=== PATIENT | female | born 1970 | race Caucasian/White ===

== ENCOUNTER 2023-09-18 08:57 | Emergency (ER) | payer MEDICARE ==
--- NOTE | 2023-09-18 09:25 | ERPHSYRPT ---
- History of Present Illness Time Seen by Provider: 09/18/23 09:18 Historian: patient, family Exam Limitations: no limitations Physician History: Pt has abd pain past day or so and pain down in stomach after swallowing but no pain at throat with swallowing and can swallow liquids OK No shortness of breath or CP. But pain is epigastric no hc CAD reported. Abd tender RUQ. some N and V and D also. nHx GERD and GB removed. Discussed risks/benefits of testing/Tx with pt and family including CBC, CT abd, CMP,lipase , HCG, UA, ZOfran, pepcid, protonix, IVF, Morphine, benedryl, Lactate, trops, EKG, and they wish to proceed - so these are ordered. Results discussed with family and pt. Family present in ER as independent Hx source. Timing/Duration: yesterday Activities at Onset: none Quality: cramping, pressure, sharpness Abdominal Pain Onset Location: RUQ, epigastric Pain Radiation: epigastric Severity of Pain-Max: moderate Modifying Factors: Improves With: nothing Associated Symptoms: diarrhea, loss of appetite, nausea, vomiting Previous symptoms: no prior history Allergies/Adverse Reactions: Penicillins Allergy (Verified 09/18/23 09:09) Home Medications: ALPRAZolam 1 MG [Xanax 1 mg] 1 mg PO BID 09/18/23 [History] Diazepam 5 mg [Valium 5 MG] 5 mg PO CLARIFY PRN 09/18/23 [History] - Review of Systems Constitutional: No Fever, No Chills Eyes: No Symptoms Ears, Nose, & Throat: No Symptoms Respiratory: No Cough, No Dyspnea Cardiac: No Chest Pain, No Edema, No Syncope Abdominal/Gastrointestinal: Abdominal Pain, Nausea, Vomiting, Diarrhea Genitourinary Symptoms: No Dysuria Musculoskeletal: No Back Pain, No Neck Pain Skin: No Rash Neurological: No Dizziness, No Focal Weakness, No Sensory Changes Psychological: No Symptoms Endocrine: No Symptoms Hematologic/Lymphatic: No Symptoms Immunological/Allergic: No Symptoms All Other Systems: Reviewed and Negative - Past Medical History Pertinent Past Medical History: Yes Neurological History: No Pertinent History ENT History: No Pertinent History Cardiac History: No Pertinent History Respiratory History: No Pertinent History Endocrine Medical History: No Pertinent History Musculoskeletal History: Other (fibromyalgia and ED HMS ) GI Medical History: GERD, Gallbladder Disease, Other History: No Pertinent History Female Reproductive Disorders: Other (hysterectomy) - Past Surgical History Past Surgical History: Yes Gastrointestinal: Cholecystectomy - Nursing Vital Signs Nursing Vital Signs: Initial Vital Signs Temperature 98.7 F 09/18/23 09:05 Pulse Rate 110 H 09/18/23 09:05 Respiratory Rate 19 09/18/23 09:05 Blood Pressure 123/98 09/18/23 09:05 O2 Sat by Pulse Oximetry 99 09/18/23 09:05 Pain Scale Pain Intensity 0 - Physical Exam General Appearance: no apparent distress, alert Eye Exam: PERRL/EOMI, eyes nml inspection Ears, Nose, Throat Exam: normal ENT inspection, pharynx normal, moist mucous membranes Neck Exam: normal inspection, non-tender, supple, full range of motion Respiratory Exam: normal breath sounds, lungs clear, No respiratory distress Cardiovascular Exam: regular rate/rhythm, normal heart sounds Gastrointestinal/Abdomen Exam: soft, tenderness, guarding, No mass Pelvic Exam: deferred Rectal Exam: deferred Back Exam: normal inspection, normal range of motion, No CVA tenderness, No vertebral tenderness Extremity Exam: normal inspection, normal range of motion, pelvis stable Neurologic Exam: alert, oriented x 3, cooperative, normal mood/affect, nml cerebellar function, sensation nml, No motor deficits Skin Exam: normal color, warm, dry - Course Nursing assessment & vital signs reviewed: Yes EKG Interpreted by Me: Sinus Rhythm, NORMAL AXIS, NORMAL INTERVALS, NORMAL QRS, Non-specific ST Changes - CT Exams Abdomen/Pelvis CT Interpretation: Tele-radiologist Report, Normal Appendix, No appendicitis Soft Tissue Neck CT Interpretation: Tele-radiologist Report, Other (dilated prox esophagus) Ordered Tests: Active Orders 24 hr Category Date Time Status EKG-ER Only STAT Care 09/18/23 09:30 Active IV Insertion STAT Care 09/18/23 09:30 Active ABDOMEN AND PELVIS W/0 CONTRAS [CT] Stat Exams 09/18/23 09:31 Completed NECK WO CONTRAST [CT] Stat Exams 09/18/23 11:36 Completed CBC W DIFF Stat Lab 09/18/23 09:46 Completed CMP Stat Lab 09/18/23 09:46 Completed HCG QUALITATIVE, SERUM Stat Lab 09/18/23 09:46 Completed LIPASE Stat Lab 09/18/23 09:46 Completed Lactic Acid Stat Lab 09/18/23 11:07 Completed Lactic Acid Stat Lab 09/18/23 13:10 Received TROPONIN Q4H Lab 09/18/23 09:46 Completed TROPONIN Q4H Lab 09/18/23 12:58 Completed TROPONIN Q4H Lab 09/18/23 17:30 Ordered UA W/RFX UR CULTURE Stat Lab 09/18/23 09:42 Completed Medication Summary Discontinued Medications Generic Name Dose Route Start Last Admin Trade Name Suzie PRN Reason Stop Dose Admin Diphenhydramine HCl 25 mg 09/18/23 09:30 09/18/23 09:38 Diphenhydramine Hcl 50 Mg/Ml Vial IV 09/18/23 09:31 25 mg STAT ONE Administration Diphenhydramine HCl Confirm 09/18/23 09:36 Diphenhydramine Hcl 50 Mg/Ml Vial Administered 09/18/23 09:37 Dose 50 mg .ROUTE .STK-MED ONE Famotidine 20 mg 09/18/23 09:30 09/18/23 09:38 Famotidine 20 Mg/1 Vial IV 09/18/23 09:31 20 mg STAT ONE Administration Famotidine Confirm 09/18/23 09:36 Famotidine 20 Mg/1 Vial Administered 09/18/23 09:37 Dose 20 mg IV .STK-MED ONE Hydromorphone HCl 1 mg 09/18/23 10:33 09/18/23 10:38 Hydromorphone 1 Mg/1ml Inj IV 09/18/23 10:34 1 mg STAT ONE Administration Hydromorphone HCl Confirm 09/18/23 10:37 Hydromorphone 1 Mg/1ml Inj Administered 09/18/23 10:38 Dose 1 mg .ROUTE .STK-MED ONE Sodium Chloride 1,000 mls @ 999 mls/hr 09/18/23 09:30 09/18/23 10:38 Sodium Chloride 0.9% 1000 Ml IV 09/18/23 10:30 Infused .Q1H1M STA Infusion Sodium Chloride Confirm 09/18/23 09:36 Sodium Chloride 0.9% 1000 Ml Administered 09/18/23 09:37 Dose 1,000 mls @ ud .ROUTE .STK-MED ONE Sodium Chloride 1,000 mls @ 999 mls/hr 09/18/23 11:22 09/18/23 12:36 Sodium Chloride 0.9% 1000 Ml IV 09/18/23 12:22 Infused .Q1H1M STA Infusion Sodium Chloride Confirm 09/18/23 11:30 Sodium Chloride 0.9% 1000 Ml Administered 09/18/23 11:31 Dose 1,000 mls @ ud .ROUTE .STK-MED ONE Lorazepam 1 mg 09/18/23 13:18 09/18/23 13:28 Lorazepam 1 Mg Tablet PO 09/18/23 13:19 1 mg STAT ONE Administration Lorazepam Confirm 09/18/23 13:28 Lorazepam 1 Mg Tablet Administered 09/18/23 13:29 Dose 1 mg .ROUTE .STK-MED ONE Morphine Sulfate 4 mg 09/18/23 09:30 09/18/23 09:37 Morphine Sulfate 4 Mg/Ml Injection IV 09/18/23 09:31 4 mg STAT ONE Administration Morphine Sulfate Confirm 09/18/23 09:36 Morphine Sulfate 4 Mg/Ml Injection Administered 09/18/23 09:37 Dose 4 mg .ROUTE .STK-MED ONE Ondansetron HCl 4 mg 09/18/23 09:30 09/18/23 09:38 Ondansetron Hcl 4 Mg/2 Ml Vial IV 09/18/23 09:31 4 mg STAT ONE Administration Ondansetron HCl Confirm 09/18/23 09:35 Ondansetron Hcl 4 Mg/2 Ml Vial Administered 09/18/23 09:36 Dose 4 mg .ROUTE .STK-MED ONE Pantoprazole Sodium 40 mg 09/18/23 09:30 09/18/23 09:37 Pantoprazole 40 Mg Vial IV 09/18/23 09:31 40 mg STAT ONE Administration Pantoprazole Sodium Confirm 09/18/23 09:36 Pantoprazole 40 Mg Vial Administered 09/18/23 09:37 Dose 40 mg IV .STK-MED ONE Lab/Rad Data: Laboratory Result Diagrams 09/18/23 09:46 09/18/23 09:46 Laboratory Results 09/18/23 09/18/23 09/18/23 Range/Units 12:58 11:07 09:46 WBC (3.98-10.04) x10^3/uL RBC (3.93-5.22) x10^6/uL Hgb (11.2-15.7) g/dL Hct (34.1-44.9) % MCV (79.4-94.8) fL MCH (25.6-32.2) pg MCHC (32.2-35.5) g/dL RDW (11.7-14.4) % Plt Count (182-369) x10^3/uL MPV (9.4-12.3) fL Gran % (34.0-71.1) % Immature Gran % (Auto) (0.001-0.429) % Nucleat RBC Rel Count (0.00-0.2) % Eos # (Auto) (0.04-0.36) x10^3/uL Immature Gran # (Auto) (0.001-0.031) x10^3u/L Absolute Lymphs (auto) (1.18-3.74) x10^3/uL Absolute Monos (auto) (0.24-0.86) x10^3/uL Absolute Nucleated RBC (0.00-0.012) x10^3u/L Lymphocytes % (19.3-51.7) % Monocytes % (4.7-12.5) % Eosinophils % (0.7-5.8) % Basophils % (0.1-1.2) % Absolute Granulocytes (1.56-6.13) x10^3/uL Basophils # (0.01-0.08) x10^3/uL Sodium (135-145) mmol/L Potassium (3.5-5.1) mmol/L Chloride (98-107) mmol/L Carbon Dioxide (22-30) mmol/L Anion Gap (5-15) MEQ/L BUN (7-17) mg/dL Creatinine (0.52-1.04) mg/dL Estimated GFR ML/MIN Glucose (74-106) mg/dL Lactic Acid 2.4 H (0.4-2.0) Calcium (8.4-10.2) mg/dL Total Bilirubin (0.2-1.3) mg/dL AST (14-36) U/L ALT (0-35) U/L Alkaline Phosphatase (38-126) U/L Troponin I < 0.012 (0.000-0.033) ng/mL Serum Total Protein (6.3-8.2) g/dL Albumin (3.5-5.0) g/dL Lipase (23-300) U/L Serum HCG, Qual NEGATIVE (NEGATIVE) Urine Color (Yellow) Urine Appearance (Clear) Urine pH (4.6-8.0) Ur Specific [place] (1.005-1.030) Urine Protein (Negative) Urine Glucose (UA) (Negative) mg/dL Urine Ketones (Negative) Urine Blood (Negative) Urine Nitrite (Negative) Urine Bilirubin (Negative) Urine Urobilinogen (0.2) mg/dL Ur Leukocyte Esterase (Negative) U Hyaline Cast (Auto) (0-2) /LPF Urine Microscopic RBC (0-5) /HPF Urine Microscopic WBC (0-5) /HPF Ur Epithelial Cells (None Seen) /HPF Urine Bacteria (None Seen) /HPF Urine Culture Reflexed (NO) 09/18/23 09/18/23 09/18/23 Range/Units 09:46 09:46 09:42 WBC 4.6 (3.98-10.04) x10^3/uL RBC 4.13 (3.93-5.22) x10^6/uL Hgb 12.8 (11.2-15.7) g/dL Hct 37.7 (34.1-44.9) % MCV 91.3 (79.4-94.8) fL MCH 31.0 (25.6-32.2) pg MCHC 34.0 (32.2-35.5) g/dL RDW 12.1 (11.7-14.4) % Plt Count 308 (182-369) x10^3/uL MPV 9.3 L (9.4-12.3) fL Gran % 54.5 (34.0-71.1) % Immature Gran % (Auto) 0.2 (0.001-0.429) % Nucleat RBC Rel Count 0.0 (0.00-0.2) % Eos # (Auto) 0.09 (0.04-0.36) x10^3/uL Immature Gran # (Auto) 0.01 (0.001-0.031) x10^3u/L Absolute Lymphs (auto) 1.64 (1.18-3.74) x10^3/uL Absolute Monos (auto) 0.30 (0.24-0.86) x10^3/uL Absolute Nucleated RBC 0.00 (0.00-0.012) x10^3u/L Lymphocytes % 36.0 (19.3-51.7) % Monocytes % 6.6 (4.7-12.5) % Eosinophils % 2.0 (0.7-5.8) % Basophils % 0.7 (0.1-1.2) % Absolute Granulocytes 2.49 (1.56-6.13) x10^3/uL Basophils # 0.03 (0.01-0.08) x10^3/uL Sodium 140 (135-145) mmol/L Potassium 4.2 (3.5-5.1) mmol/L Chloride 106 (98-107) mmol/L Carbon Dioxide 25 (22-30) mmol/L Anion Gap 12.7 (5-15) MEQ/L BUN 8 (7-17) mg/dL Creatinine 0.62 (0.52-1.04) mg/dL Estimated GFR 105.8 ML/MIN Glucose 96 (74-106) mg/dL Lactic Acid (0.4-2.0) Calcium 9.8 (8.4-10.2) mg/dL Total Bilirubin 0.30 (0.2-1.3) mg/dL AST 21 (14-36) U/L ALT 20 (0-35) U/L Alkaline Phosphatase 51 (38-126) U/L Troponin I < 0.012 (0.000-0.033) ng/mL Serum Total Protein 7.6 (6.3-8.2) g/dL Albumin 4.6 (3.5-5.0) g/dL Lipase 43 (23-300) U/L Serum HCG, Qual (NEGATIVE) Urine Color Yellow (Yellow) Urine Appearance Sl Cloudy* A (Clear) Urine pH 6.5 (4.6-8.0) Ur Specific [place] <=1.005 (1.005-1.030) Urine Protein Negative (Negative) Urine Glucose (UA) Negative (Negative) mg/dL Urine Ketones Negative (Negative) Urine Blood Negative (Negative) Urine Nitrite Negative (Negative) Urine Bilirubin Negative (Negative) Urine Urobilinogen 0.2 (0.2) mg/dL Ur Leukocyte Esterase Negative (Negative) U Hyaline Cast (Auto) NONE SEEN (0-2) /LPF Urine Microscopic RBC 0-2 (0-5) /HPF Urine Microscopic WBC 0-2 (0-5) /HPF Ur Epithelial Cells Rare (None Seen) /HPF Urine Bacteria None Seen (None Seen) /HPF Urine Culture Reflexed NO (NO) - Progress Progress: improved, re-examined Progress Note: 09/18/23 10:34 morphine was not adequate so going to dilaudid for pain - discussed with pt and she wishes to proceed. 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 This is ordered. Results discussed with pt and family. 09/18/23 13:42 Pt is feeling much better now and geoff liquids in ER OK . I have advised pt and family of dilation of esophagus and this will need to be scoped and they wish to do this as outpt with PMDs also I advised that undetected pathology could be evolving including C-V or Abd other and again they are most comfortable with DC and outpt f/u rather than inpt/ further ER and have the capacity to make this choice. Counseled pt/family regarding: lab results, diagnosis, need for follow-up, rad results Medical Desision Making - Discussion of managment Reviewed:: Test results, Need for additional workup Agreed on:: Treatment plan, need for follow-up - Diagnostic Testing Diagnostic test were ordered, analyzed, and reviewed by me: Yes Radiological Interpretation: Teleradiologist Report - Risk of complications The pt has a mod risk of morbidity or mortality based on: Need for prescription drug management The pt has a high risk of morbidity or mortality based on: Decision regarding hospitilization or escalation of hosp level of care - Departure Departure Disposition: Home Clinical Impression: Abd pain unknown cause with vomiting, dilated esophagus, GERD with stricture Dx Condition: Good Critical Care Time: No Referrals: CAROLINE CASTAÑEDA MATERIAL CONTROL CLERK [Primary Care Provider] - Follow up/PCP as directed Instructions: Abdominal pain, Severe Abdominal Pain, Adult (DC), Dyspepsia (DC), Monroe's esophagus, Esophageal Stricture (DC) Additional Instructions: Followup with your DrBryon Wednesday to arrange further evaluation with scoping for your esophagus. continue on liquids and resume ulcer meds such as pepcid meantime. We have not determined a precise cause for your symptoms and although a flare of the esophagus condition seems to fit there still could be other things including cardiac or other conditions that could also be developing so follow-up with your Dr is important and return meantime if any concerns or further symptoms of concern.
[2023-09-18 09:35] VITALS: TEMP 98.7
[2023-09-18] MEDS ORDERED: Zofran 4 MG/2 ML VIAL ONE (09:35)
[2023-09-18] MEDS ORDERED: PROTONIX 40 MG IV IV ONE (09:36)
[2023-09-18] MEDS ORDERED: Sodium Chloride 0.9% 1000 ML 1,000 ML ONE ×2 (09:36→11:30)
[2023-09-18] MEDS ORDERED: BENADRYL 50 MG/ML ONE (09:36)
[2023-09-18] MEDS ORDERED: MORPHINE SULFATE 4 MG INJ ONE (09:36)
[2023-09-18] MEDS ORDERED: Pepcid 20 MG VIAL IV ONE (09:36)
[2023-09-18] MEDS: MORPHINE SULFATE 4 MG INJ IV ONE (09:37)
[2023-09-18] MEDS: Sodium Chloride 0.9% 1000 ML 1,000 ML IV STA ×2 (09:37→11:30)
[2023-09-18] MEDS: PROTONIX 40 MG IV IV ONE (09:37)
[2023-09-18] MEDS: Zofran 4 MG/2 ML VIAL IV ONE (09:38)
[2023-09-18] MEDS: Pepcid 20 MG VIAL IV ONE (09:38)
[2023-09-18] MEDS: BENADRYL 50 MG/ML IV ONE (09:38)
[2023-09-18 09:50] LABS: Absolute Neutrophil Ct (ANC) 2.49 x10^3/uL (1.56-6.13); BASOPHIL % 0.7 % (0.1-1.2); Basophil (Absolute #) 0.03 x10^3/uL (0.01-0.08); Eosinophil (Absolute #) 0.09 x10^3/uL (0.04-0.36); Hematocrit 37.7 % (34.1-44.9); Hemoglobin 12.8 g/dL (11.2-15.7); IMMATURE GRAN # 0.01 x10^3u/L (0.001-0.031); IMMATURE GRAN % 0.2 % (0.001-0.429); Lymphocyte (Absolute #) 1.64 x10^3/uL (1.18-3.74); Mean Cell Volume 91.3 fL (79.4-94.8); Mean Platelet Volume 9.3 fL (9.4-12.3); Monocytes % 6.6 % (4.7-12.5); Neutrophil % 54.5 % (34.0-71.1); Platelet Count 308 x10^3/uL (182-369); Red Blood Count 4.13 x10^6/uL (3.93-5.22); Red Cell Distribution Width 12.1 % (11.7-14.4); White Blood Count 4.6 x10^3/uL (3.98-10.04)
[2023-09-18 10:16] LABS: ALBUMIN 4.6 g/dL (3.5-5.0); ALKALINE PHOSPHATASE 51 U/L (38-126); ANION GAP 12.7 MEQ/L (5-15); BLOOD UREA NITROGEN 8 mg/dL (7-17); CHLORIDE 106 mmol/L (98-107); Calcium 9.8 mg/dL (8.4-10.2); Carbon Dioxide 25 mmol/L (22-30); Creatinine 1 0.62 mg/dL (0.52-1.04); EST GLOMERULAR FILTRATION RATE 105.8 ML/MIN; Glucose 96 mg/dL (74-106); LIPASE 43 U/L (23-300); Potassium 4.2 mmol/L (3.5-5.1); SGOT/AST 21 U/L (14-36); SGPT/ALT 20 U/L (0-35); SODIUM 140 mmol/L (135-145); TROPONIN < 0.012 ng/mL (0.000-0.033); Total Protein 7.6 g/dL (6.3-8.2)
[2023-09-18 10:17] LABS: HCG SERUM TEST NEGATIVE (NEGATIVE)
[2023-09-18] MEDS ORDERED: Hydromorphone 1 mg/ml Injection ONE (10:37)
[2023-09-18] MEDS: Hydromorphone 1 mg/ml Injection IV ONE (10:38)
--- NOTE | 2023-09-18 10:46 | XRAY ---
CLINICAL HISTORY: abd pain COMPARISON: None. TECHNIQUE: Non-contrast CT of the abdomen and pelvis was performed, with the following protocol: axial images and reconstructed coronal and sagittal images. No intravenous contrast was administered. One of the following dose reduction techniques was utilized for this exam: Automated exposure control, adjustment of the mA and/or kV according to patient size, and use of iterative reconstruction. FINDINGS: Abdomen: Liver: Normal in size, shape, and density. No focal lesions, cysts, or masses were identified. Gallbladder and Biliary System: Cholecystectomy. No biliary duct dilatation. Pancreas: Pancreatic head, body, and tail are visualized and appear normal in size and density. No pancreatic masses or calcifications were noted. Spleen: Normal in size, shape, and density. No splenic lesions or masses were identified. Tiny accessory spleens, one of them localized at the javan (9 mm) and the other one at the upper pole (10 mm). Kidneys and Adrenal Glands: Both kidneys are normal in size, shape, and position. Cortical thickness is within normal limits. No renal calculi or hydronephrosis. Adrenal glands are unremarkable. Appendix: The appendix is normal in size without oleksandr appendiceal fat stranding, and without an appendicolith. No evidence of appendiceal abscess or perforation. Pelvis: Urinary Bladder: Partially distended, with no calcic stones. Peritoneal and Retroperitoneal Structures: No free fluid or abnormal fluid collections were identified within the abdomen or pelvis. No lymphadenopathy was noted. Presence of some phlebolites. Bowel: The visualized bowel loops are normal in caliber and appearance. No evidence of bowel obstruction or wall thickening. Bones and Soft Tissues: Pelvic bones and soft tissues are unremarkable. No fractures or abnormal masses were identified. IMPRESSION: Non-contrast CT abdomen and pelvis demonstrate normal findings without evidence of acute intra-abdominal pathology. Electronically Signed by: Geraldine Ayoub MD. (09/18/2023 10:41:55 EDT)
[2023-09-18 11:18] LABS: Bacteria None Seen /HPF (None Seen); Bilirubin Negative (Negative); Blood Negative (Negative); Epithelial Cells Rare /HPF (None Seen); Glucose, Urine Negative (Negative); Hyaline Casts NONE SEEN /LPF (0-2); Ketones Negative (Negative); Leukocyte Esterase Negative (Negative); Nitrite Negative (Negative); Ph 6.5 (4.6-8.0); Protein,Urine Dip Negative (Negative); RBC 0-2 /HPF (0-5); Specific Gravity <=1.005 (1.005-1.030); Urobilinogen 0.2 mg/dL (0.2); WBC 0-2 /HPF (0-5)
[2023-09-18 11:22] LABS: ADD URINE CULTURE? NO (NO); Appearance Sl Cloudy* (Clear)
--- NOTE | 2023-09-18 13:04 | XRAY ---
CLINICAL HISTORY: swallowing symptoms COMPARISON: None. TECHNIQUE: Axial CT scan of the neck was performed without the administration of intravenous contrast. Coronal reconstructions were obtained. One of the following dose reduction techniques were utilized for this exam: Automated exposure control, adjustment of the mA and/or kV according to patient size, use of iterative reconstruction. FINDINGS: There is dilatation of the visualized esophagus , diameter approximately measuring 2.0 x 1.5cm. Apparent mild thickening of the tonsils seen bilaterally. Right-sided tosilolith seen measuring approximately 0.3cm. No enlarged cervical lymph nodes at any of noted lymph node stations. Normal CT appearance of the supra-and infra hyoid deep neck spaces. Normal CT appearance of the larynx, namely the supraglottic, glottic and infra, glottic spaces. Unremarkable. Nasal and Starla pharyngeal mucosal spaces. Normal CT appearance of the sublingual, submandibular and parotid salivary glands. The base of the tongue, the uvula, the epiglottis, the vocal cords, the upper trachea are unremarkable. The thyroid gland shows no definite abnormality. The visualized structures of the posterior fossa show no definite abnormality. Intervention seen in the lower cervical vertebrae without loosening or break. IMPRESSION: 1. Dilatation of the visualized esophagus seen, needs further evaluation. 2. Apparent mild thickening of the tonsils bilaterally, would recommend clinical correlation to rule out inflammatory process. Electronically Signed by: Geraldine Ayoub MD. (09/18/2023 12:59:32 EDT)
[2023-09-18] MEDS: Ativan 1 MG PO ONE (13:28)
[2023-09-18] MEDS ORDERED: Ativan 1 MG ONE (13:28)
[2023-09-18 13:31] VITALS: O2SAT 97
[2023-09-18 14:26] VITALS: BP 109/72; PULSE 94; RESP 18
== END 2023-09-18 14:15 | disposition home or self-care (01) ==
LOC: ED 08:57
DX: R10.13 Epigastric pain (principal); R10.11 Right upper quadrant pain; R11.2 Nausea with vomiting, unspecified; K22.89 Other specified disease of esophagus; K21.9 Gastro-esophageal reflux disease without esophagitis; R19.7 Diarrhea, unspecified; Z79.899 Other long term (current) drug therapy
CPT/HCPCS: 36000; 36415; 70490; 74176; 80053; 81001; 83605; 83690; 84484; 84703; 85025; 93005; 96374; 96375; 99284; J1170; J1200; J2270; J2405; A9270-GY

== ENCOUNTER 2023-10-14 13:47 | Emergency (ER) | payer MEDICARE ==
--- NOTE | 2023-10-14 13:55 | ERPHSYRPT ---
- History of Present Illness Time Seen by Provider: 10/14/23 13:55 Source: patient Exam Limitations: no limitations Physician History: This is a 53-year-old white female patient who was brought to the emergency room by family/friend by private vehicle. Patient has a pain specialist, Dr. Lara for her chronic pain issues including mastoiditis, cervical spine pain and TMJ. She has been off of any treatment for these painful sites secondary to being treated for a dilated esophagus. On 09/18/2023, patient was seen in our emergency department and had a full workup. I reviewed the workup, the results of the CT scan of the abdomen pelvis as well as the CT scan of the soft tissue of the neck on the same date. CT scan of the abdomen pelvis did not show any acute or emergent intra-abdominal or intrapelvic process. There was a normal appendix. CT scan of soft tissue of the neck showed dilated proximal esophagus. On 09/29/2023 patient underwent an upper endoscopy by a laborer wrecking and salvaging. She states there is a follow-up appointment on 10/21/2023. Patient's most recent pain specialty appointment was pushed out into October 2023. Patient has been using THC to help control her pain issues. However, her GI specialist told her not to use THC as it is aggravating her esophageal issue. Patient has a history of gastroesophageal reflux disease, TMJ, anxiety issues. Patient states that morphine does not work for her. Dilaudid works better for her. Patient has had a cholecystectomy in the past. Patient denies any trauma to her head neck shoulders or chest. She does complain of abdominal pain that is sharp and more significant than when she was here on 09/18/2023. She has had no vomiting or diarrhea symptoms. She denies chest pain. She denies shortness of breath. Timing/Duration: day(s) (2 to 3), worse Severity: moderate Associated Symptoms: abdominal pain, No nausea, No vomiting, No shortness of breath, No chest pain Allergies/Adverse Reactions: Penicillins Allergy (Verified 10/14/23 13:56) Home Medications: ALPRAZolam 1 MG [Xanax 1 mg] 1 mg PO BID 09/18/23 [History] Cyclobenzaprine HCl 10 mg [Cyclobenzaprine 10 MG] 10 mg PO DAILY 10/14/23 [History] Omeprazole 40 mg PO DAILY 10/14/23 [History] Hx Tetanus, Diphtheria Vaccination/Date Given: Yes Hx Influenza Vaccination/Date Given: No Travel Risk - International Travel Have you traveled outside of the country in past 3 weeks: No - Emerging Infectious Disease Are you exhibiting symptoms associated with any current EIDs: Yes Symptoms: Abdominal Pain - Review of Systems Constitutional: No Symptoms Eyes: No Symptoms Ears, Nose, & Throat: No Symptoms Respiratory: No Symptoms Cardiac: No Symptoms Abdominal/Gastrointestinal: No Symptoms Genitourinary Symptoms: No Symptoms Musculoskeletal: Neck Pain, Other (Right jaw/TMJ pain) Skin: No Symptoms Neurological: Headache, Other (Pain right mastoid) Psychological: Anxiety Endocrine: No Symptoms Hematologic/Lymphatic: No Symptoms Immunological/Allergic: No Symptoms All Other Systems: Reviewed and Negative - Past Medical History Pertinent Past Medical History: Yes Neurological History: No Pertinent History ENT History: No Pertinent History Cardiac History: No Pertinent History Respiratory History: No Pertinent History Endocrine Medical History: No Pertinent History Musculoskeletal History: Other (fibromyalgia and ED HMS ) GI Medical History: GERD, Gallbladder Disease, Other History: No Pertinent History Psycho-Social History: Anxiety, Other Female Reproductive Disorders: Other (hysterectomy) Other Medical History: allergies, TMJ, H-pylori, EDS/ HMS hypermobility, occipital neurolagia, Graves Disease, PTSD, - Past Surgical History Past Surgical History: Yes Gastrointestinal: Cholecystectomy Female Surgical History: Hysterectomy Other Surgical History: sinus surgery, anchored WINTER behind left ear, neck, bleeding ulcer repair - Social History Smoking Status: Former smoker Exposure to second hand smoke: No Drug Use: marijuana - Social Determinants of Health Will the patient participate in the screening: Yes Do you worry about a steady place to live?: No In the past 12 months,have you had to go without utilities?: No Transportation Issues: No Has anyone in your support network made you feel unsafe?: No Have you or anyone in your house had to go without enough: No - Nursing Vital Signs Nursing Vital Signs: Initial Vital Signs Pulse Rate 103 H 10/14/23 14:00 Blood Pressure 145/106 10/14/23 14:00 O2 Sat by Pulse Oximetry 97 10/14/23 14:00 Pain Scale Pain Intensity [Generalized] 9 Pain Intensity 7 - Physical Exam General Appearance: no apparent distress, alert, anxiety Eye Exam: PERRL/EOMI, eyes nml inspection Ears, Nose, Throat Exam: normal ENT inspection, moist mucous membranes Neck Exam: normal inspection, non-tender, supple, full range of motion Respiratory Exam: normal breath sounds, lungs clear, airway intact, No chest tenderness, No respiratory distress Cardiovascular Exam: regular rate/rhythm, normal heart sounds, normal peripheral pulses Gastrointestinal/Abdomen Exam: soft, normal bowel sounds, No tenderness Pelvic Exam: not done Rectal Exam: not done Back Exam: normal inspection, normal range of motion, No CVA tenderness, No vertebral tenderness Extremity Exam: normal inspection, normal range of motion, pelvis stable Neurologic Exam: alert, oriented x 3, cooperative, 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 tested, nml cerebellar function, nml station & gait, sensation nml Skin Exam: normal color, warm Lymphatic Exam: No adenopathy SpO2 Interpretation: normal O2 Delivery: Room Air - Course Nursing assessment & vital signs reviewed: Yes Ordered Tests: Active Orders 24 hr Category Date Time Status Clean Catch Urine Specimen STAT Care 10/14/23 14:25 Active ABDOMEN AND PELVIS W/0 CONTRAS [CT] Stat Exams 10/14/23 14:24 Taken UA W/RFX UR CULTURE Stat Lab 10/14/23 14:29 Completed Urine Triage Profile Stat Lab 10/14/23 14:29 Completed Medication Summary Discontinued Medications Generic Name Dose Route Start Last Admin Trade Name Suzie PRN Reason Stop Dose Admin Hydromorphone HCl 1 mg 10/14/23 14:25 10/14/23 14:32 Hydromorphone 1 Mg/1ml Inj IM 10/14/23 14:26 1 mg STAT ONE Administration Hydromorphone HCl Confirm 10/14/23 14:30 Hydromorphone 1 Mg/1ml Inj Administered 10/14/23 14:31 Dose 1 mg .ROUTE .STK-MED ONE Ondansetron HCl 4 mg 10/14/23 14:26 10/14/23 14:32 Zofran 4 Mg/Udtablet Orally Disintegrating PO 10/14/23 14:27 4 mg STAT ONE Administration Ondansetron HCl Confirm 10/14/23 14:30 Zofran 4 Mg/Udtablet Orally Disintegrating Administered 10/14/23 14:31 Dose 4 mg .ROUTE .STK-MED ONE Orphenadrine Citrate 60 mg 10/14/23 14:26 10/14/23 14:32 Orphenadrine Citrate 60 Mg/2 Ml Vial IM 10/14/23 14:27 60 mg STAT ONE Administration Orphenadrine Citrate Confirm 10/14/23 14:30 Orphenadrine Citrate 60 Mg/2 Ml Vial Administered 10/14/23 14:31 Dose 60 mg .ROUTE .STK-MED ONE Oxycodone/Acetaminophen 1 tab 10/14/23 16:32 Oxycodone Hcl/Apap 5 Mg/325 Mg Tablet PO 10/14/23 16:33 STAT STA Lab/Rad Data: Laboratory Results 10/14/23 10/14/23 Range/Units 14:29 14:29 Urine Color Yellow (Yellow) Urine Appearance Clear (Clear) Urine pH 6.5 (4.6-8.0) Ur Specific [place] 1.015 (1.005-1.030) Urine Protein Negative (Negative) Urine Glucose (UA) Negative (Negative) mg/dL Urine Ketones Negative (Negative) Urine Blood Trace (Negative) Urine Nitrite Negative (Negative) Urine Bilirubin Negative (Negative) Urine Urobilinogen 0.2 (0.2) mg/dL Ur Leukocyte Esterase Negative (Negative) U Hyaline Cast (Auto) NONE SEEN (0-2) /LPF Urine Microscopic RBC 0-2 (0-5) /HPF Urine Microscopic WBC 0-2 (0-5) /HPF Ur Epithelial Cells Rare (None Seen) /HPF Urine Bacteria None Seen (None Seen) /HPF Urine Culture Reflexed NO (NO) Urine Opiates Level NEGATIVE (NEGATIVE) Ur Methadone NEGATIVE (NEGATIVE) Urine Barbiturates NEGATIVE (NEGATIVE) Ur Phencyclidine (PCP) NEGATIVE (NEGATIVE) Urine Amphetamine NEGATIVE (NEGATIVE) U Benzodiazepine Level POSITIVE A (NEGATIVE) Urine Cocaine NEGATIVE (NEGATIVE) Urine Marijuana (THC) POSITIVE A (NEGATIVE) - Progress Progress: improved, pain not gone completely Progress Note: 10/14/23 14:33 My medical decision making and the assignment of low to moderate complexity of this patient's medical issue today is based on review of the patient's past medical history, review of the patient's medication list, review the patient drug allergy list, history present illness and physical findings on examination. The patient states she is no longer taking any muscle relaxants and she states that this helps her control her pain. Workup in this patient includes urinalysis, urine triage, CT scan of the abdomen pelvis. Patient did not suffer any acute fall or trauma. I do not believe this patient has an emergent issue today. However, he does appear to be in pain and there is probably an acute exacerbation of chronic pain issues. She realizes, after our discussion, that she is in the emergency department and I am ruling in and ruling out emergency medical issues. We will order the CT scan of the abdomen pelvis and provide her with some pain relief here in the emergency department. However, she is aware will not be writing for any narcotic medicines for outpatient. 10/14/23 16:36 I interpreted the patient's laboratory data results. Based on the laboratory data results, patient has no acute or emergent findings. CT scan of the abdomen pelvis without contrast was interpreted by the radiologist and I reviewed the impression. There is no change from the CT scan of the abdomen pelvis that was performed on 09/18/2023. There are no acute or new findings. Counseled pt/family regarding: lab results, diagnosis, need for follow-up, rad results Medical Desision Making - Independent Historian Additional History obtained from: Family - Diagnostic Testing Diagnostic test were ordered, analyzed, and reviewed by me: Yes Radiological Interpretation: Reviewed by me, Teleradiologist Report - Risk of complications The pt has a mod risk of morbidity or mortality based on: Need for prescription drug management - Departure Departure Disposition: Home Clinical Impression: Acute neck pain, Abdominal pain Condition: Stable Critical Care Time: No Referrals: CAROLINE CASTAÑEDA PL[employer] [facility] [employer] FINISHER [Primary Care Provider] - Follow up/PCP as directed Additional Instructions: Take your steroids as prescribed. Do not take your antianxiety medicine within 3 hours of your new muscle relaxant prescription. If you are taking cyclobenzaprine (Flexeril), stop that medication. Call your primary care provider and your pain specialist tomorrow, 10/15/2023, to make arrangements for follow-up appointment for further evaluation and management including follow-up appointment to be seen in the next 2 to 3 days. Prescriptions: Prednisone 10 mg [Deltasone 10 mg] 10 mg PO TID #12 tablet Orphenadrine Citrate 100 mg [Norflex 100 MG Tablet] 100 mg PO BID #10 tab
[2023-10-14] MEDS ORDERED: Hydromorphone 1 mg/ml Injection ONE (14:30)
[2023-10-14] MEDS ORDERED: ZOFRAN ODT 4 MG ONE (14:30)
[2023-10-14] MEDS ORDERED: Norflex 60 MG/2 ML ONE (14:30)
[2023-10-14] MEDS: Norflex 60 MG/2 ML IM ONE (14:32)
[2023-10-14] MEDS: Hydromorphone 1 mg/ml Injection IM ONE (14:32)
[2023-10-14] MEDS: ZOFRAN ODT 4 MG PO ONE (14:32)
[2023-10-14 15:08] LABS: Appearance Clear (Clear); Bacteria None Seen /HPF (None Seen); Bilirubin Negative (Negative); Blood Trace (Negative); Epithelial Cells Rare /HPF (None Seen); Glucose, Urine Negative (Negative); Hyaline Casts NONE SEEN /LPF (0-2); Ketones Negative (Negative); Leukocyte Esterase Negative (Negative); Nitrite Negative (Negative); Ph 6.5 (4.6-8.0); Protein,Urine Dip Negative (Negative); RBC 0-2 /HPF (0-5); Specific Gravity 1.015 (1.005-1.030); Urobilinogen 0.2 mg/dL (0.2); WBC 0-2 /HPF (0-5)
[2023-10-14 15:09] LABS: ADD URINE CULTURE? NO (NO)
[2023-10-14 15:17] LABS: Amphetamine,Urine NEGATIVE (NEGATIVE); Barbiturate,Urine NEGATIVE (NEGATIVE); Benzodiazepine,Urine POSITIVE (NEGATIVE); Cocaine,Urine NEGATIVE (NEGATIVE); Methadone,Urine NEGATIVE (NEGATIVE); Opiate,Urine NEGATIVE (NEGATIVE); PCP,Urine NEGATIVE (NEGATIVE); THC,Urine POSITIVE (NEGATIVE)
[2023-10-14] MEDS: PERCOCET TABLET 5/325MG PO STA (16:39)
[2023-10-14] MEDS ORDERED: PERCOCET TABLET 5/325MG ONE (16:39)
--- NOTE | 2023-10-14 16:39 | XRAY ---
Indication: Abdominal pain. Multiple contiguous axial images obtained through the abdomen and pelvis without contrast. Comparison: September 18, 2023 Lung bases again clear of infiltrate or effusion. Heart not enlarged. Noncontrasted stomach and bowel loops appear nonobstructed. Appendix not visualized. Again minimal sigmoid diverticulosis, cholecystectomy, and hysterectomy. No free fluid/air. Remaining liver, pancreas, spleen, adrenal glands, kidneys, ureters, bladder, and aorta are unremarkable for noncontrast exam. Again very minimal aortoiliac calcifications without AAA. Osseous structures intact. Impression: No change compared to ER CT exam one month ago. Again chronic findings including very minimal arteriosclerotic disease and minimal sigmoid diverticulosis. No new/acute findings on this noncontrast exam
[2023-10-14 16:44] VITALS: BP 112/77; PULSE 87; O2SAT 99
== END 2023-10-14 16:46 | disposition home or self-care (01) ==
LOC: ED 13:47
DX: M54.2 Cervicalgia (principal); R10.9 Unspecified abdominal pain; Z79.52 Long term (current) use of systemic steroids; Z79.899 Other long term (current) drug therapy
CPT/HCPCS: 74176; 80307; 81001; 96372; 99284; J1170; J2360; Q0162; A9270-GY

== ENCOUNTER 2023-10-29 07:16 | Emergency (ER) | payer MEDICARE ==
[2023-10-29 07:34] VITALS: TEMP 98.4
--- NOTE | 2023-10-29 07:46 | ERPHSYRPT ---
- History of Present Illness Time Seen by Provider: 10/29/23 07:25 Source: patient, family Exam Limitations: clinical condition Patient Subjective Stated Complaint: C/O body pain that began last night. When asked to describe "body pain" patient states her head, neck, shoulders, back, buttocks, and legs hurt. Patient indicates "muscle spasms" and her "tendons feel like they are being pulled everywhere." Triage Nursing Assessment: Patient brought back to ER in a W/C. She is alert and oriented; anxious and tearful. Skin tone normal. WOOD WNL. No SOB. Physician History: This is a 53-year-old white female patient who was brought into the emergency department by her mother who provided additional, independent history because the patient was in a lot of pain. Patient returns to emergency department with same symptoms that she complained of on 10/14/2023 with the exception of no abdominal pain today, no chest pain today and no shortness of breath today. Patient states that last evening she began having significant headache pain as well as pain in all of her muscles and tendons. She did take Tylenol and her Ativan this morning. Patient states that her next injection/evaluation treatment with Dr. Lara, her pain specialist, is on 11/10/2023. Patient does take Ativan for panic attacks and severe anxiety. Patient has a history of gastroesophageal reflux disease, hypothyroidism and chronic, intermittent s ciatica. Timing/Duration: yesterday Severity: moderate Modifying Factors: Improves With: nothing Associated Symptoms: headaches, No abdominal pain, No shortness of breath, No chest pain Allergies/Adverse Reactions: Penicillins Allergy (Verified 10/29/23 07:22) Home Medications: ALPRAZolam 1 MG [Xanax 1 mg] 1 mg PO BID 09/18/23 [History] Fluticasone Propionate 1 spray INTRANASAL DAILY 10/29/23 [History] Levothyroxine Sodium 50 mcg PO DAILY 10/29/23 [History] Omeprazole 40 mg PO DAILY 10/29/23 [History] Hx Tetanus, Diphtheria Vaccination/Date Given: Yes Hx Influenza Vaccination/Date Given: No Hx Pneumococcal Vaccination/Date Given: No Immunizations Up to Date: Yes Travel Risk - International Travel Have you traveled outside of the country in past 3 weeks: No - Emerging Infectious Disease Are you exhibiting symptoms associated with any current EIDs: No Symptoms: Abdominal Pain - Review of Systems Constitutional: No Symptoms Eyes: No Symptoms Ears, Nose, & Throat: No Symptoms Respiratory: No Symptoms Cardiac: No Symptoms Abdominal/Gastrointestinal: No Symptoms Genitourinary Symptoms: No Symptoms Musculoskeletal: Arthralgias, Back Pain, Myalgias, No Fall, No Injury Skin: No Symptoms Neurological: Headache, No Dizziness, No Seizure, No Speech Changes, No Vertigo Psychological: No Symptoms Endocrine: No Symptoms Hematologic/Lymphatic: No Symptoms Immunological/Allergic: No Symptoms All Other Systems: Reviewed and Negative - Past Medical History Pertinent Past Medical History: Yes Neurological History: No Pertinent History ENT History: No Pertinent History Cardiac History: No Pertinent History Respiratory History: No Pertinent History Endocrine Medical History: No Pertinent History Musculoskeletal History: Other GI Medical History: GERD, Gallbladder Disease, Other History: No Pertinent History Psycho-Social History: Anxiety, Other Female Reproductive Disorders: Other Other Medical History: allergies, TMJ, H-pylori, EDS/ HMS hypermobility, occipital neurolagia, Graves Disease, PTSD, - Past Surgical History Past Surgical History: Yes Gastrointestinal: Cholecystectomy Female Surgical History: Hysterectomy Other Surgical History: sinus surgery, anchored WINTER behind left ear, neck, bleeding ulcer repair - Social History Smoking Status: Former smoker Exposure to second hand smoke: No Drug Use: none - Social Determinants of Health Will the patient participate in the screening: Declined to provide - Nursing Vital Signs Nursing Vital Signs: Initial Vital Signs Temperature 98.4 F 10/29/23 07:24 Pulse Rate 100 H 10/29/23 07:24 Respiratory Rate 20 10/29/23 07:24 Blood Pressure 128/89 10/29/23 07:24 O2 Sat by Pulse Oximetry 99 10/29/23 07:24 Pain Scale Pain Intensity 10 - Physical Exam General Appearance: mild distress, alert, anxiety Eye Exam: PERRL/EOMI, eyes nml inspection Ears, Nose, Throat Exam: normal ENT inspection, moist mucous membranes Neck Exam: normal inspection, non-tender, supple, full range of motion Respiratory Exam: normal breath sounds, lungs clear, airway intact, No chest tenderness, No respiratory distress Cardiovascular Exam: regular rate/rhythm, normal heart sounds, normal peripheral pulses Gastrointestinal/Abdomen Exam: soft, normal bowel sounds, No tenderness Pelvic Exam: deferred Rectal Exam: not done Back Exam: normal inspection, decreased range of motion, muscle spasm, No CVA tenderness, No vertebral tenderness Extremity Exam: normal inspection, normal range of motion, pelvis stable Neurologic Exam: alert, oriented x 3, 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, 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 tested, sensation nml Skin Exam: normal color, warm, dry Lymphatic Exam: No adenopathy SpO2 Interpretation: normal SpO2: 99 - Course Nursing assessment & vital signs reviewed: Yes Ordered Tests: Active Orders 24 hr Category Date Time Status IV Insertion STAT Care 10/29/23 07:44 Active Pulse Oximetry (ED) STAT Care 10/29/23 07:44 Active HEAD WITHOUT CONTRAST [CT] Stat Exams 10/29/23 07:44 Completed CBC W DIFF Stat Lab 10/29/23 07:55 Completed CMP Stat Lab 10/29/23 07:55 Completed MONO SCREEN Stat Lab 10/29/23 07:55 Completed Medication Summary Discontinued Medications Generic Name Dose Route Start Last Admin Trade Name Freq PRN Reason Stop Dose Admin Methylprednisolone Sodium 0 mg 10/29/23 07:44 10/29/23 08:14 Succinate 125 mg/ Sterile IV 10/29/23 07:45 125 mg Water 2 ml STAT ONE Administration Hydromorphone HCl 1 mg 10/29/23 07:44 10/29/23 08:17 Hydromorphone 1 Mg/1ml Inj IV 10/29/23 07:45 1 mg STAT ONE Administration Hydromorphone HCl Confirm 10/29/23 08:10 Hydromorphone 1 Mg/1ml Inj Administered 10/29/23 08:11 Dose 1 mg .ROUTE .STK-MED ONE Methylprednisolone Sodium Succinate Confirm 10/29/23 08:10 Methylprednis Sod Succ 125 Mg/2 Ml Vial Administered 10/29/23 08:11 Dose 125 mg .ROUTE .STK-MED ONE Prochlorperazine Edisylate 5 mg 10/29/23 07:44 10/29/23 08:12 Prochlorperazine Edisylate 10 Mg/2 Ml Vial IV 10/29/23 07:45 5 mg STAT ONE Administration Prochlorperazine Edisylate Confirm 10/29/23 08:10 Prochlorperazine Edisylate 10 Mg/2 Ml Vial Administered 10/29/23 08:11 Dose 10 mg .ROUTE .STK-MED ONE Sterile Water Confirm 10/29/23 08:10 Water For Injection,Sterile 10 Ml Vial Administered 10/29/23 08:11 Dose 10 ml IJ .STK-MED ONE Lab/Rad Data: Laboratory Result Diagrams 10/29/23 07:55 10/29/23 07:55 Laboratory Results 10/29/23 10/29/23 10/29/23 Range/Units 07:55 07:55 07:55 WBC 6.3 (3.98-10.04) x10^3/uL RBC 4.00 (3.93-5.22) x10^6/uL Hgb 12.5 (11.2-15.7) g/dL Hct 37.1 (34.1-44.9) % MCV 92.8 (79.4-94.8) fL MCH 31.3 (25.6-32.2) pg MCHC 33.7 (32.2-35.5) g/dL RDW 13.0 (11.7-14.4) % Plt Count 274 (182-369) x10^3/uL MPV 9.1 L (9.4-12.3) fL Gran % 55.0 (34.0-71.1) % Immature Gran % (Auto) 0.2 (0.001-0.429) % Nucleat RBC Rel Count 0.0 (0.00-0.2) % Eos # (Auto) 0.08 (0.04-0.36) x10^3/uL Immature Gran # (Auto) 0.01 (0.001-0.031) x10^3u/L Absolute Lymphs (auto) 2.29 (1.18-3.74) x10^3/uL Absolute Monos (auto) 0.40 (0.24-0.86) x10^3/uL Absolute Nucleated RBC 0.00 (0.00-0.012) x10^3u/L Lymphocytes % 36.5 (19.3-51.7) % Monocytes % 6.4 (4.7-12.5) % Eosinophils % 1.3 (0.7-5.8) % Basophils % 0.6 (0.1-1.2) % Absolute Granulocytes 3.46 (1.56-6.13) x10^3/uL Basophils # 0.04 (0.01-0.08) x10^3/uL Sodium 138 (135-145) mmol/L Potassium 4.1 (3.5-5.1) mmol/L Chloride 108 H (98-107) mmol/L Carbon Dioxide 23 (22-30) mmol/L Anion Gap 11.0 (5-15) MEQ/L BUN 13 (7-17) mg/dL Creatinine 0.62 (0.52-1.04) mg/dL Estimated GFR 105.1 ML/MIN Glucose 97 (74-106) mg/dL Calcium 9.9 (8.4-10.2) mg/dL Total Bilirubin 0.40 (0.2-1.3) mg/dL AST 19 (14-36) U/L ALT 17 (0-35) U/L Alkaline Phosphatase 51 (38-126) U/L Serum Total Protein 7.5 (6.3-8.2) g/dL Albumin 4.6 (3.5-5.0) g/dL Monoscreen NEGATIVE (NEGATIVE) - Progress Progress: improved, pain not gone completely, re-examined Progress Note: 10/29/23 07:55 Medical decision making and the assignment of moderate complexity to this patient's medical issue today is based on review of the patient's past medical history, review of the patient's medication list, reviewed patient drug allergy list, history present illness and physical findings on examination. The workup today includes placement of intravenous line, CT scan of the head without contrast, CBC, CMP, magnesium level, viral swabs and monotest. Differential diagnosis includes but is not limited to exacerbation of her fibromyalgia and chronic pain issues, viral illness, electrolyte abnormalities, anxiety/panic attack 10/29/23 08:56 I reviewed and interpreted the patient's laboratory data results. Based on the results, there are no acute, emergent medical issues. The scan of the head without contrast was interpreted by the radiologist and I reviewed the impression. The impression states partial opacification of bilateral mastoids and left middle ear. Presumed inflammatory. 10/29/23 09:[address] Lara's office. They state that this patient is no longer there patient. She does not have a pain management appointment. Counseled pt/family regarding: lab results, diagnosis, need for follow-up, rad results Medical Desision Making - Independent Historian Additional History obtained from: Mother - Diagnostic Testing Diagnostic test were ordered, analyzed, and reviewed by me: Yes Radiological Interpretation: Reviewed by me, Teleradiologist Report - Risk of complications The pt has a mod risk of morbidity or mortality based on: Need for prescription drug management - Departure Departure Disposition: Home Clinical Impression: Chronic pain, Mastoiditis, Infection of left inner ear Condition: Stable Critical Care Time: No Referrals: CAROLINE CASTAÑEDA NP [Primary Care Provider] - Follow up/PCP as directed Additional Instructions: Call your primary care provider and your pain management physician today for further instructions. Take your antibiotics and other medications as prescribed. Prescriptions: Cefdinir 300 mg PO BID #14 cap Clindamycin HCl 150 mg [Cleocin 150 mg Capsule] 2 cap PO QID #56 cap Prednisone 10 mg [Deltasone 10 mg] 10 mg PO TID #12 tablet
[2023-10-29 07:57] LABS: Absolute Neutrophil Ct (ANC) 3.46 x10^3/uL (1.56-6.13); BASOPHIL % 0.6 % (0.1-1.2); Basophil (Absolute #) 0.04 x10^3/uL (0.01-0.08); Eosinophil % 1.3 % (0.7-5.8); Eosinophil (Absolute #) 0.08 x10^3/uL (0.04-0.36); Hematocrit 37.1 % (34.1-44.9); Hemoglobin 12.5 g/dL (11.2-15.7); IMMATURE GRAN # 0.01 x10^3u/L (0.001-0.031); IMMATURE GRAN % 0.2 % (0.001-0.429); Lymphocyte (Absolute #) 2.29 x10^3/uL (1.18-3.74); Lymphocytes % 36.5 % (19.3-51.7); Mean Cell Volume 92.8 fL (79.4-94.8); Mean Corpuscular Hemoglobin 31.3 pg (25.6-32.2); Mean Corpuscular Hgb Concent. 33.7 g/dL (32.2-35.5); Mean Platelet Volume 9.1 fL (9.4-12.3); Monocytes % 6.4 % (4.7-12.5); Platelet Count 274 x10^3/uL (182-369); White Blood Count 6.3 x10^3/uL (3.98-10.04)
[2023-10-29 08:10] LABS: ALBUMIN 4.6 g/dL (3.5-5.0); BILIRUBIN,TOTAL 0.4 mg/dL (0.2-1.3); Calcium 9.9 mg/dL (8.4-10.2); Creatinine 1 0.62 mg/dL (0.52-1.04); EST GLOMERULAR FILTRATION RATE 105.1 ML/MIN; Potassium 4.1 mmol/L (3.5-5.1); Total Protein 7.5 g/dL (6.3-8.2)
[2023-10-29] MEDS ORDERED: Compazine 10 MG/2 ML ONE (08:10)
[2023-10-29] MEDS ORDERED: solu-MEDROL ONE (08:10)
[2023-10-29] MEDS ORDERED: Sterile H2O 10 ml IJ ONE (08:10)
[2023-10-29] MEDS ORDERED: Hydromorphone 1 mg/ml Injection ONE (08:10)
[2023-10-29] MEDS: Compazine 10 MG/2 ML IV ONE (08:12)
[2023-10-29] MEDS: solu-MEDROL 125 MG, Sterile H2O 10 ml 2 ML IV ONE (08:14)
[2023-10-29 08:15] VITALS: RESP 18
[2023-10-29] MEDS: Hydromorphone 1 mg/ml Injection IV ONE (08:17)
--- NOTE | 2023-10-29 08:33 | XRAY ---
Indication: Headache 2 days. Multiple contiguous axial images obtained through the head without contrast. Comparison: None Left posterior parietal scalp hearing aid produces beam artifact. Otherwise normal appearing brain parenchyma, ventricles, and bony calvarium. Partial opacification both mastoid and left middle ear presumed inflammatory. Impression: Partial opacification both mastoid and left middle ear presumed inflammatory. Remaining CT head without contrast exam is normal.
[2023-10-29 09:41] VITALS: BP 105/69; PULSE 84; O2SAT 96
== END 2023-10-29 09:50 | disposition home or self-care (01) ==
LOC: ED 07:16
DX: G89.29 Other chronic pain (principal); H83.02 Labyrinthitis, left ear; H70.93 Unspecified mastoiditis, bilateral; R51.9 Headache, unspecified; M79.18 Myalgia, other site; Z79.52 Long term (current) use of systemic steroids; Z79.899 Other long term (current) drug therapy
CPT/HCPCS: 36000; 36415; 70450; 80053; 85025; 86308; 94760; 96374; 96375; 99284; J1170; J2919

== ENCOUNTER 2023-12-08 09:59 | Emergency (ER) | payer MEDICARE ==
[2023-12-08 10:18] VITALS: TEMP 98.3
[2023-12-08] MEDS ORDERED: MORPHINE SULFATE 4 MG INJ ONE (11:02)
[2023-12-08] MEDS: MORPHINE SULFATE 4 MG INJ IM ONE (11:04)
[2023-12-08 11:34] VITALS: BP 116/84; PULSE 87; RESP 16; O2SAT 94
--- NOTE | 2023-12-08 11:54 | ERPHSYRPT ---
- History of Present Illness Time Seen by Provider: 12/08/23 10:55 Source: patient, family Exam Limitations: no limitations Patient Subjective Stated Complaint: C/O neck and bilateral shoulder pain. Described as "tension." States started yesterday with a "neck spasm." Triage Nursing Assessment: Patient ambulated back to ER without difficulties. She is alert and oriented. Anxious. No SOB. Skin tone normal. NO skin alterations noted to area of pain; denies falls, injury, trauma. Patient able to undress self and apply gown without difficulties; no ROM issues noted during clothing change. Physician History: 53-year-old female with history of TMJ issues with chronic pain, occipital neuralgia, chronic neck pain/spasms/degenerative disc disease, received epidural injections in the neck, trigger point injections in the shoulders, history of Ori-Danlos syndrome presented in the ER with spasm of the neck and jaw bilaterally more on the right side since yesterday. Patient reports usually gets better with Xanax and Zanaflex along with Tylenol but it was not improving. Patient reports having difficulty swallowing chronically because of TMJ issues and it felt as if there was a bulge on the right side of the neck yesterday which is improved now. She denies any chest pain palpitations or shortness of breath. Reports spasm in the shoulder muscles as well. Reports having similar symptoms in the past needing IM pain medicine shots. Allergies/Adverse Reactions: Penicillins Allergy (Verified 12/08/23 10:03) Home Medications: ALPRAZolam 1 MG [Xanax 1 mg] 1 mg PO BID 09/18/23 [History] Fluticasone Propionate 1 spray INTRANASAL DAILY PRN 10/29/23 [History] Levothyroxine Sodium 50 mcg PO DAILY 10/29/23 [History] Omeprazole 40 mg PO DAILY 10/29/23 [History] Tizanidine HCl 4 mg [Zanaflex 4 MG] 4 mg PO HS 12/08/23 [History] Hx Tetanus, Diphtheria Vaccination/Date Given: Yes Hx Influenza Vaccination/Date Given: No Hx Pneumococcal Vaccination/Date Given: No Immunizations Up to Date: Yes Travel Risk - International Travel Have you traveled outside of the country in past 3 weeks: No - Emerging Infectious Disease Are you exhibiting symptoms associated with any current EIDs: No Symptoms: Abdominal Pain - Review of Systems Constitutional: No Symptoms Eyes: No Symptoms Ears, Nose, & Throat: No Symptoms Respiratory: No Symptoms Cardiac: No Symptoms Abdominal/Gastrointestinal: No Symptoms Musculoskeletal: Neck Pain Skin: No Symptoms Neurological: Headache Psychological: No Symptoms Endocrine: No Symptoms Hematologic/Lymphatic: No Symptoms Immunological/Allergic: No Symptoms - Past Medical History Pertinent Past Medical History: Yes Neurological History: No Pertinent History ENT History: Other Cardiac History: No Pertinent History Respiratory History: No Pertinent History Endocrine Medical History: No Pertinent History Musculoskeletal History: Other GI Medical History: GERD, Gallbladder Disease, Other History: No Pertinent History Psycho-Social History: Anxiety, Other Female Reproductive Disorders: Other Other Medical History: allergies, TMJ, H-pylori, EDS/ HMS hypermobility, occipital neurolagia, Graves Disease, PTSD, mastoiditis, dilated esophagus - Past Surgical History Past Surgical History: Yes Gastrointestinal: Cholecystectomy Female Surgical History: Hysterectomy Other Surgical History: sinus surgery, anchored WINTER behind left ear, neck, bleeding ulcer repair - Social History Smoking Status: Former smoker Exposure to second hand smoke: No Drug Use: none - Social Determinants of Health Will the patient participate in the screening: Declined to provide - Nursing Vital Signs Nursing Vital Signs: Initial Vital Signs Temperature 98.3 F 12/08/23 10:06 Pulse Rate 96 H 12/08/23 10:06 Respiratory Rate 18 12/08/23 10:06 Blood Pressure 146/102 12/08/23 10:06 O2 Sat by Pulse Oximetry 100 12/08/23 10:06 Pain Scale Pain Intensity 9 - Physical Exam General Appearance: no apparent distress, alert Eye Exam: PERRL/EOMI Ears, Nose, Throat Exam: other (Bilateral TMJ/lower jaw tenderness.) Neck Exam: normal inspection, supple, full range of motion, other (Bilateral trapezius and sternomastoid mild tenderness.), No meningismus, No midline t enderness Respiratory Exam: normal breath sounds, lungs clear Cardiovascular Exam: regular rate/rhythm, normal heart sounds Gastrointestinal/Abdomen Exam: soft, normal bowel sounds Back Exam: normal inspection Extremity Exam: normal inspection, normal range of motion Neurologic Exam: alert, oriented x 3, cooperative Skin Exam: normal color SpO2 Interpretation: normal SpO2: 94 O2 Delivery: Room Air Ordered Tests: Medication Summary Discontinued Medications Generic Name Dose Route Start Last Admin Trade Name Freq PRN Reason Stop Dose Admin Morphine Sulfate 4 mg 12/08/23 10:55 12/08/23 11:04 Morphine Sulfate 4 Mg/Ml Injection IM 12/08/23 10:56 4 mg STAT ONE Administration Morphine Sulfate Confirm 12/08/23 11:02 Morphine Sulfate 4 Mg/Ml Injection Administered 12/08/23 11:03 Dose 4 mg .ROUTE .STK-MED ONE - Progress Progress: pain not gone completely, re-examined Progress Note: 12/08/23 11:52 53-year-old with history of Ori-Danlos, occipital neuralgia, chronic neck pain, chronic TMJ issues presented with increased spasming in the TMJ and the neck muscles since yesterday with no significant relief with her routine Zanaflex/Xanax and Tylenol. She does have tenderness in the muscles in the TMJ area. Lungs clear to auscultation. No chest pain/tenderness. She is given morphine for symptomatic relief, on reevaluation her pain is better but not completely resolved. Patient is advised to have follow-up with her pain management and take Tylenol/ibuprofen as needed. Do not think she needs imaging or any other workup and is being discharged with outpatient follow-up. Her pain does not seems to be cardiac in nature at all but more of a musculoskeletal and I do not think she needs any workup for that. Discussed signs symptoms of worsening needing return to ER which she seems understanding. Stable for discharge. Counseled pt/family regarding: diagnosis, need for follow-up Medical Desision Making - Independent Historian Additional History obtained from: Mother - Risk of complications The pt has a mod risk of morbidity or mortality based on: Need for prescription drug management - Departure Departure Disposition: Home Clinical Impression: Spasm of cervical paraspinous muscle Condition: Stable Critical Care Time: No Referrals: CAROLINE CASTAÑEDA NP [Primary Care Provider] - Follow up with PCP 1 day Instructions: Muscle spasms (muscle cramps) Additional Instructions: Take Tylenol/ibuprofen as needed along with your Zanaflex and Xanax. Follow-up with your primary care and pain management for reevaluation. Return to ER for intractable pain, difficulty movements of neck or if having chest pain palpitation/shortness of breath etc.
== END 2023-12-08 12:03 | disposition home or self-care (01) ==
LOC: ED 09:59
DX: M62.838 Other muscle spasm (principal); Z79.899 Other long term (current) drug therapy
CPT/HCPCS: 96372; 99283; J2270

== ENCOUNTER 2024-03-22 02:19 | Emergency (ER) | payer MEDICARE ==
--- NOTE | 2024-03-22 02:36 | ERPHSYRPT ---
- History of Present Illness Time Seen by Provider: 03/22/24 02:34 Source: patient Exam Limitations: no limitations Physician History: 53-year-old female presents to the emergency department for evaluation of chest pain. Patient states symptoms started 2 days ago with pain in her legs. Patient then experienced chest pain radiating into her jaw and both arms. No nausea vomiting or diaphoresis. Symptoms are mild to moderate in intensity. No specific worsening or improving factors. No trauma no fever patient voices no other complaints or concerns at this time. Portions of this note were created with voice recognition technology. There may be grammatical, spelling, punctuation or sound alike errors Timing/Duration: today Severity: moderate Modifying Factors: Improves With: nothing Associated Symptoms: denies symptoms Allergies/Adverse Reactions: Penicillins Allergy (Verified 12/08/23 10:03) Home Medications: ALPRAZolam 1 MG [Xanax 1 mg] 1 mg PO BID 09/18/23 [History] Fluticasone Propionate 1 spray INTRANASAL DAILY PRN 10/29/23 [History] Levothyroxine Sodium 50 mcg PO DAILY 10/29/23 [History] Tizanidine HCl 4 mg [Zanaflex 4 MG] 6 mg PO HS 12/08/23 [History] Hx Tetanus, Diphtheria Vaccination/Date Given: Yes Hx Influenza Vaccination/Date Given: No Hx Pneumococcal Vaccination/Date Given: No Travel Risk - Emerging Infectious Disease Are you exhibiting symptoms associated with any current EIDs: No Symptoms: Abdominal Pain - Review of Systems Constitutional: No Symptoms, No Fever, No Chills Eyes: No Symptoms Ears, Nose, & Throat: No Symptoms Respiratory: No Symptoms, No Cough, No Dyspnea Cardiac: No Symptoms, No Chest Pain, No Edema, No Syncope Abdominal/Gastrointestinal: No Symptoms, No Abdominal Pain, No Nausea, No Vomiting, No Diarrhea Genitourinary Symptoms: No Symptoms, No Dysuria Musculoskeletal: No Symptoms, No Back Pain, No Neck Pain Skin: No Symptoms, No Rash Neurological: No Symptoms, No Dizziness, No Focal Weakness, No Sensory Changes Psychological: No Symptoms Endocrine: No Symptoms Hematologic/Lymphatic: No Symptoms Immunological/Allergic: No Symptoms All Other Systems: Reviewed and Negative - Past Medical History Pertinent Past Medical History: Yes Neurological History: No Pertinent History ENT History: Other Cardiac History: No Pertinent History Respiratory History: No Pertinent History Endocrine Medical History: No Pertinent History Musculoskeletal History: Other GI Medical History: GERD, Gallbladder Disease, Other History: No Pertinent History Psycho-Social History: Anxiety, Other Female Reproductive Disorders: Other Other Medical History: allergies, TMJ, H-pylori, EDS/ HMS hypermobility, occipital neurolagia, Graves Disease, PTSD, mastoiditis, dilated esophagus - Past Surgical History Past Surgical History: Yes Gastrointestinal: Cholecystectomy Female Surgical History: Hysterectomy Other Surgical History: sinus surgery, anchored WINTER behind left ear, neck, bleeding ulcer repair - Social History Smoking Status: Former smoker Exposure to second hand smoke: No Drug Use: none - Social Determinants of Health Will the patient participate in the screening: Declined to provide - Nursing Vital Signs Nursing Vital Signs: Initial Vital Signs O2 Sat by Pulse Oximetry 98 03/22/24 02:20 Pain Scale Pain Intensity 2 - Physical Exam General Appearance: no apparent distress, alert Eye Exam: PERRL/EOMI, eyes nml inspection Ears, Nose, Throat Exam: normal ENT inspection, moist mucous membranes Neck Exam: normal inspection, full range of motion Respiratory Exam: normal breath sounds, lungs clear, airway intact, No respiratory distress Cardiovascular Exam: regular rate/rhythm, normal heart sounds, normal peripheral pulses Gastrointestinal/Abdomen Exam: soft, normal bowel sounds, No tenderness, No mass Back Exam: normal inspection, normal range of motion, No CVA tenderness, No vertebral tenderness Extremity Exam: normal inspection, normal range of motion, pelvis stable Neurologic Exam: alert, oriented x 3, cooperative, normal mood/affect, sensation nml, No motor deficits Skin Exam: normal color, warm, dry, No rash Lymphatic Exam: No adenopathy SpO2 Interpretation: normal O2 Delivery: Room Air - Course Nursing assessment & vital signs reviewed: Yes EKG Interpreted by Me: RATE (92), Sinus Rhythm, NORMAL AXIS, NORMAL INTERVALS, NORMAL QRS - Radiology Exams Chest X-ray Interpretation: Interpreted by me (No acute cardiopulmonary abnormality) Ordered Tests: Active Orders 24 hr Category Date Time Status 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 Care 03/22/24 02:34 Active EKG-ER Only STAT Care 03/22/24 02:33 Active IV Insertion STAT Care 03/22/24 02:33 Active Pulse Oximetry (ED) STAT Care 03/22/24 02:33 Active CHEST 1 VIEW (PORTABLE) Routine Exams 03/22/24 09:28 Completed ACETAMINOPHEN Stat Lab 03/22/24 03:00 Completed CBC W DIFF Stat Lab 03/22/24 02:30 Completed CMP Stat Lab 03/22/24 02:30 Completed D-DIMER QUANTITATIVE Stat Lab 03/22/24 02:30 Completed ETHYL ALCOHOL Stat Lab 03/22/24 03:00 Completed MAGNESIUM Stat Lab 03/22/24 02:30 Completed NT PRO BNPII Stat Lab 03/22/24 02:30 Completed SALICYLATE Stat Lab 03/22/24 03:00 Completed TROPONIN Q4H Lab 03/22/24 02:30 Completed TROPONIN Q4H Lab 03/22/24 07:03 Completed TROPONIN Q4H Lab 03/22/24 10:45 Ordered UA W/RFX UR CULTURE Stat Lab 03/22/24 05:19 Completed Urine Triage Profile Stat Lab 03/22/24 05:19 Completed Transfer Order Routine Transfer 03/22/24 Ordered Medication Summary Discontinued Medications Generic Name Dose Route Start Last Admin Trade Name Freq PRN Reason Stop Dose Admin Aspirin 162 mg 03/22/24 04:22 03/22/24 04:28 Aspirin 81 Mg Tab.Chew PO 03/22/24 04:23 162 mg STAT ONE Administration Aspirin Confirm 03/22/24 04:27 Aspirin 81 Mg Tab.Chew Administered 03/22/24 04:28 Dose 162 mg .ROUTE .STK-MED ONE Droperidol 1.25 mg 03/22/24 03:25 03/22/24 03:27 Droperidol 5 Mg/2 Ml Vial IV 03/22/24 03:26 1.25 mg STAT ONE Administration Droperidol Confirm 03/22/24 03:27 Droperidol 5 Mg/2 Ml Vial Administered 03/22/24 03:28 Dose 5 mg .ROUTE .STK-MED ONE Ketorolac Tromethamine 30 mg 03/22/24 02:51 03/22/24 02:56 Ketorolac Tromethamine 30 Mg/Ml Inj IV 03/22/24 02:52 30 mg STAT ONE Administration Ketorolac Tromethamine Confirm 03/22/24 02:56 Ketorolac Tromethamine 30 Mg/Ml Inj Administered 03/22/24 02:57 Dose 30 mg .ROUTE .STK-MED ONE Nitroglycerin 1 gm 03/22/24 04:23 03/22/24 04:28 Nitroglycerin 1 Gm Packet TOP 03/22/24 04:24 1 gm STAT ONE Administration Nitroglycerin Confirm 03/22/24 04:27 Nitroglycerin 1 Gm Packet Administered 03/22/24 04:28 Dose 1 gm .ROUTE .STK-MED ONE Lab/Rad Data: Laboratory Result Diagrams 03/22/24 02:30 03/22/24 02:30 Laboratory Results 03/22/24 03/22/24 03/22/24 Range/Units 07:03 05:19 05:19 WBC (3.98-10.04) x10^3/uL RBC (3.93-5.22) x10^6/uL Hgb (11.2-15.7) g/dL Hct (34.1-44.9) % MCV (79.4-94.8) fL MCH (25.6-32.2) pg MCHC (32.2-35.5) g/dL RDW (11.7-14.4) % Plt Count (182-369) x10^3/uL MPV (9.4-12.3) fL Gran % (34.0-71.1) % Immature Gran % (Auto) (0.001-0.429) % Nucleat RBC Rel Count (0.00-0.2) % Eos # (Auto) (0.04-0.36) x10^3/uL Immature Gran # (Auto) (0.001-0.031) x10^3u/L Absolute Lymphs (auto) (1.18-3.74) x10^3/uL Absolute Monos (auto) (0.24-0.86) x10^3/uL Absolute Nucleated RBC (0.00-0.012) x10^3u/L Lymphocytes % (19.3-51.7) % Monocytes % (4.7-12.5) % Eosinophils % (0.7-5.8) % Basophils % (0.1-1.2) % Absolute Granulocytes (1.56-6.13) x10^3/uL Basophils # (0.01-0.08) x10^3/uL D-Dimer (0.0-0.50) mg/L Sodium (135-145) mmol/L Potassium (3.5-5.1) mmol/L Chloride (98-107) mmol/L Carbon Dioxide (22-30) mmol/L Anion Gap (5-15) MEQ/L BUN (7-17) mg/dL Creatinine (0.52-1.04) mg/dL Estimated GFR ML/MIN Glucose (74-106) mg/dL Calcium (8.4-10.2) mg/dL Magnesium (1.6-2.3) mg/dL Total Bilirubin (0.2-1.3) mg/dL AST (14-36) U/L ALT (0-35) U/L Alkaline Phosphatase (38-126) U/L Troponin I < 0.012 (0.000-0.033) ng/mL NT-Pro-B Natriuret Pep (<300) pg/mL Serum Total Protein (6.3-8.2) g/dL Albumin (3.5-5.0) g/dL Urine Color Yellow (Yellow) Urine Appearance Clear (Clear) Urine pH 5.5 (4.6-8.0) Ur Specific [place] 1.010 (1.005-1.030) Urine Protein Negative (Negative) Urine Glucose (UA) Negative (Negative) mg/dL Urine Ketones Negative (Negative) Urine Blood Negative (Negative) Urine Nitrite Negative (Negative) Urine Bilirubin Negative (Negative) Urine Urobilinogen 0.2 (0.2) mg/dL Ur Leukocyte Esterase Negative (Negative) U Hyaline Cast (Auto) NONE SEEN (0-2) /LPF Urine Microscopic RBC 0-2 (0-5) /HPF Urine Microscopic WBC 0-2 (0-5) /HPF Ur Epithelial Cells Rare (None Seen) /HPF Urine Bacteria None Seen (None Seen) /HPF Urine Culture Reflexed NO (NO) Salicylates (2-20) mg/dL Urine Opiates Level POSITIVE A (NEGATIVE) Ur Methadone NEGATIVE (NEGATIVE) Acetaminophen (10-30) ug/ml Urine Barbiturates NEGATIVE (NEGATIVE) Ur Phencyclidine (PCP) NEGATIVE (NEGATIVE) Urine Amphetamine NEGATIVE (NEGATIVE) U Benzodiazepine Level POSITIVE A (NEGATIVE) Urine Cocaine NEGATIVE (NEGATIVE) Urine Marijuana (THC) POSITIVE A (NEGATIVE) Ethyl Alcohol (0-10) mg/dL 03/22/24 03/22/24 03/22/24 Range/Units 03:00 02:30 02:30 WBC (3.98-10.04) x10^3/uL RBC (3.93-5.22) x10^6/uL Hgb (11.2-15.7) g/dL Hct (34.1-44.9) % MCV (79.4-94.8) fL MCH (25.6-32.2) pg MCHC (32.2-35.5) g/dL RDW (11.7-14.4) % Plt Count (182-369) x10^3/uL MPV (9.4-12.3) fL Gran % (34.0-71.1) % Immature Gran % (Auto) (0.001-0.429) % Nucleat RBC Rel Count (0.00-0.2) % Eos # (Auto) (0.04-0.36) x10^3/uL Immature Gran # (Auto) (0.001-0.031) x10^3u/L Absolute Lymphs (auto) (1.18-3.74) x10^3/uL Absolute Monos (auto) (0.24-0.86) x10^3/uL Absolute Nucleated RBC (0.00-0.012) x10^3u/L Lymphocytes % (19.3-51.7) % Monocytes % (4.7-12.5) % Eosinophils % (0.7-5.8) % Basophils % (0.1-1.2) % Absolute Granulocytes (1.56-6.13) x10^3/uL Basophils # (0.01-0.08) x10^3/uL D-Dimer 0.27 (0.0-0.50) mg/L Sodium (135-145) mmol/L Potassium (3.5-5.1) mmol/L Chloride (98-107) mmol/L Carbon Dioxide (22-30) mmol/L Anion Gap (5-15) MEQ/L BUN (7-17) mg/dL Creatinine (0.52-1.04) mg/dL Estimated GFR ML/MIN Glucose (74-106) mg/dL Calcium (8.4-10.2) mg/dL Magnesium (1.6-2.3) mg/dL Total Bilirubin (0.2-1.3) mg/dL AST (14-36) U/L ALT (0-35) U/L Alkaline Phosphatase (38-126) U/L Troponin I < 0.012 (0.000-0.033) ng/mL NT-Pro-B Natriuret Pep (<300) pg/mL Serum Total Protein (6.3-8.2) g/dL Albumin (3.5-5.0) g/dL Urine Color (Yellow) Urine Appearance (Clear) Urine pH (4.6-8.0) Ur Specific [place] (1.005-1.030) Urine Protein (Negative) Urine Glucose (UA) (Negative) mg/dL Urine Ketones (Negative) Urine Blood (Negative) Urine Nitrite (Negative) Urine Bilirubin (Negative) Urine Urobilinogen (0.2) mg/dL Ur Leukocyte Esterase (Negative) U Hyaline Cast (Auto) (0-2) /LPF Urine Microscopic RBC (0-5) /HPF Urine Microscopic WBC (0-5) /HPF Ur Epithelial Cells (None Seen) /HPF Urine Bacteria (None Seen) /HPF Urine Culture Reflexed (NO) Salicylates < 1.0 L (2-20) mg/dL Urine Opiates Level (NEGATIVE) Ur Methadone (NEGATIVE) Acetaminophen < 10 L (10-30) ug/ml Urine Barbiturates (NEGATIVE) Ur Phencyclidine (PCP) (NEGATIVE) Urine Amphetamine (NEGATIVE) U Benzodiazepine Level (NEGATIVE) Urine Cocaine (NEGATIVE) Urine Marijuana (THC) (NEGATIVE) Ethyl Alcohol < 10 (0-10) mg/dL 03/22/24 03/22/24 Range/Units 02:30 02:30 WBC 6.4 (3.98-10.04) x10^3/uL RBC 3.97 (3.93-5.22) x10^6/uL Hgb 12.4 (11.2-15.7) g/dL Hct 37.0 (34.1-44.9) % MCV 93.2 (79.4-94.8) fL MCH 31.2 (25.6-32.2) pg MCHC 33.5 (32.2-35.5) g/dL RDW 13.2 (11.7-14.4) % Plt Count 345 (182-369) x10^3/uL MPV 9.0 L (9.4-12.3) fL Gran % 50.5 (34.0-71.1) % Immature Gran % (Auto) 0.3 (0.001-0.429) % Nucleat RBC Rel Count 0.0 (0.00-0.2) % Eos # (Auto) 0.07 (0.04-0.36) x10^3/uL Immature Gran # (Auto) 0.02 (0.001-0.031) x10^3u/L Absolute Lymphs (auto) 2.63 (1.18-3.74) x10^3/uL Absolute Monos (auto) 0.41 (0.24-0.86) x10^3/uL Absolute Nucleated RBC 0.00 (0.00-0.012) x10^3u/L Lymphocytes % 41.2 (19.3-51.7) % Monocytes % 6.4 (4.7-12.5) % Eosinophils % 1.1 (0.7-5.8) % Basophils % 0.5 (0.1-1.2) % Absolute Granulocytes 3.23 (1.56-6.13) x10^3/uL Basophils # 0.03 (0.01-0.08) x10^3/uL D-Dimer (0.0-0.50) mg/L Sodium 139 (135-145) mmol/L Potassium 4.1 (3.5-5.1) mmol/L Chloride 106 (98-107) mmol/L Carbon Dioxide 23 (22-30) mmol/L Anion Gap 13.6 (5-15) MEQ/L BUN 14 (7-17) mg/dL Creatinine 0.64 (0.52-1.04) mg/dL Estimated GFR 104.3 ML/MIN Glucose 85 (74-106) mg/dL Calcium 9.6 (8.4-10.2) mg/dL Magnesium 2.1 (1.6-2.3) mg/dL Total Bilirubin 0.60 (0.2-1.3) mg/dL AST 25 (14-36) U/L ALT 22 (0-35) U/L Alkaline Phosphatase 51 (38-126) U/L Troponin I (0.000-0.033) ng/mL NT-Pro-B Natriuret Pep 36.1 (<300) pg/mL Serum Total Protein 7.9 (6.3-8.2) g/dL Albumin 5.0 (3.5-5.0) g/dL Urine Color (Yellow) Urine Appearance (Clear) Urine pH (4.6-8.0) Ur Specific [place] (1.005-1.030) Urine Protein (Negative) Urine Glucose (UA) (Negative) mg/dL Urine Ketones (Negative) Urine Blood (Negative) Urine Nitrite (Negative) Urine Bilirubin (Negative) Urine Urobilinogen (0.2) mg/dL Ur Leukocyte Esterase (Negative) U Hyaline Cast (Auto) (0-2) /LPF Urine Microscopic RBC (0-5) /HPF Urine Microscopic WBC (0-5) /HPF Ur Epithelial Cells (None Seen) /HPF Urine Bacteria (None Seen) /HPF Urine Culture Reflexed (NO) Salicylates (2-20) mg/dL Urine Opiates Level (NEGATIVE) Ur Methadone (NEGATIVE) Acetaminophen (10-30) ug/ml Urine Barbiturates (NEGATIVE) Ur Phencyclidine (PCP) (NEGATIVE) Urine Amphetamine (NEGATIVE) U Benzodiazepine Level (NEGATIVE) Urine Cocaine (NEGATIVE) Urine Marijuana (THC) (NEGATIVE) Ethyl Alcohol (0-10) mg/dL - Progress Progress: improved Progress Note: 53-year-old female former smoker presents to the emergency department for evaluation of chest pain radiating to both arms and jaw. Pain is constant. Pre liminary workup nonremarkable. Heart score is 3. Patient received aspirin and nitroglycerin. No active pain at the moment. Patient will require hospitalization for further evaluation and treatment. Plan of care discussed with patient. She agrees to admission at [facility] for further evaluation and treatment. Portions of this note were created with voice recognition technology. There may be grammatical, spelling, punctuation or sound alike errors Complexity of problem addressed is moderate acute complicated. No critical care time. Complex of data reviewed and analyzed is extensive. Test ordered chest reviewed results analyzed and correlated clinically with history and physical exam. Management discussed with hospitalist who accepts admission to [facility]. Risk of complication and or risk of morbidity/mortality of patient management is high. Vital stable. Time spent to admit patient is approximately 15 minutes. Plan of care established for shared decision making. No social determinants of health present to impede follow-up. Portions of this note were created with voice recognition technology. There may be grammatical, spelling, punctuation or sound alike errors 03/22/24 04:[address] Hooper or at approximately 9:[address] Cali accepts admission to observation. Admission delayed secondary to bed availability. 03/22/24 10:01 Counseled pt/family regarding: lab results, diagnosis - Departure Departure Disposition: Observation Clinical Impression: Chest pain, ACS (acute coronary syndrome) Condition: Stable Critical Care Time: No Referrals: CAROLINE CASTAÑEDA NP [Primary Care Provider] - Follow up/PCP as directed
[2024-03-22 02:48] LABS: Absolute Neutrophil Ct (ANC) 3.23 x10^3/uL (1.56-6.13); BASOPHIL % 0.5 % (0.1-1.2); Basophil (Absolute #) 0.03 x10^3/uL (0.01-0.08); Eosinophil % 1.1 % (0.7-5.8); Eosinophil (Absolute #) 0.07 x10^3/uL (0.04-0.36); Hemoglobin 12.4 g/dL (11.2-15.7); IMMATURE GRAN # 0.02 x10^3u/L (0.001-0.031); IMMATURE GRAN % 0.3 % (0.001-0.429); Lymphocyte (Absolute #) 2.63 x10^3/uL (1.18-3.74); Lymphocytes % 41.2 % (19.3-51.7); Mean Cell Volume 93.2 fL (79.4-94.8); Mean Corpuscular Hemoglobin 31.2 pg (25.6-32.2); Mean Corpuscular Hgb Concent. 33.5 g/dL (32.2-35.5); Monocyte (Absolute #) 0.41 x10^3/uL (0.24-0.86); Monocytes % 6.4 % (4.7-12.5); Neutrophil % 50.5 % (34.0-71.1); Platelet Count 345 x10^3/uL (182-369); Red Blood Count 3.97 x10^6/uL (3.93-5.22); Red Cell Distribution Width 13.2 % (11.7-14.4); White Blood Count 6.4 x10^3/uL (3.98-10.04)
[2024-03-22] MEDS ORDERED: TORAdol 30 mg Injection ONE ×2 (02:56→11:44)
[2024-03-22] MEDS: TORAdol 30 mg Injection IV ONE ×2 (02:56→11:45)
[2024-03-22 03:11] LABS: ANION GAP 13.6 MEQ/L (5-15); BILIRUBIN,TOTAL 0.6 mg/dL (0.2-1.3); Calcium 9.6 mg/dL (8.4-10.2); Creatinine 1 0.64 mg/dL (0.52-1.04); EST GLOMERULAR FILTRATION RATE 104.3 ML/MIN; MAGNESIUM 2.1 mg/dL (1.6-2.3); NT PRO BNPII 36.1 pg/mL (<300); Potassium 4.1 mmol/L (3.5-5.1); Total Protein 7.9 g/dL (6.3-8.2)
[2024-03-22 04:24] LABS: ACETAMINOPHEN < 10 ug/ml (10-30); ETHYL ALCOHOL < 10 mg/dL (0-10); SALICYLATE < 1.0 mg/dL (2-20)
[2024-03-22] MEDS ORDERED: BABY ASPIRIN 81 MG CHEW ONE (04:27)
[2024-03-22] MEDS ORDERED: NITRO-BID 2% UD PACKETS ONE (04:27)
[2024-03-22] MEDS: BABY ASPIRIN 81 MG CHEW PO ONE (04:28)
[2024-03-22] MEDS: NITRO-BID 2% UD PACKETS TOP ONE (04:28)
[2024-03-22 05:27] LABS: Appearance Clear (Clear); Bacteria None Seen /HPF (None Seen); Bilirubin Negative (Negative); Blood Negative (Negative); Epithelial Cells Rare /HPF (None Seen); Glucose, Urine Negative (Negative); Hyaline Casts NONE SEEN /LPF (0-2); Ketones Negative (Negative); Leukocyte Esterase Negative (Negative); Nitrite Negative (Negative); Ph 5.5 (4.6-8.0); Protein,Urine Dip Negative (Negative); RBC 0-2 /HPF (0-5); Urobilinogen 0.2 mg/dL (0.2); WBC 0-2 /HPF (0-5)
[2024-03-22 05:37] LABS: Amphetamine,Urine NEGATIVE (NEGATIVE); Barbiturate,Urine NEGATIVE (NEGATIVE); Benzodiazepine,Urine POSITIVE (NEGATIVE); Cocaine,Urine NEGATIVE (NEGATIVE); Methadone,Urine NEGATIVE (NEGATIVE); Opiate,Urine POSITIVE (NEGATIVE); PCP,Urine NEGATIVE (NEGATIVE); THC,Urine POSITIVE (NEGATIVE)
[2024-03-22 09:15] VITALS: TEMP 97.6
--- NOTE | 2024-03-22 09:40 | XRAY ---
CLINICAL HISTORY: CP COMPARISON: No prior studies are available for comparison. TECHNIQUE: An X-ray image of the chest is obtained in AP projection. FINDINGS: Pulmonary Parenchyma: Prominent para hilar vascular markings (right > left). No evidence of consolidation, collapse, or focal opacities. No pulmonary nodules are identified. No evidence of pleural effusion or pleural thickening on right. Left costophrenic angle is not included in study. Heart and Mediastinum: Heart size and shape are normal. No mediastinal widening or masses. No hilar or mediastinal lymphadenopathy. Bony Thorax: Bony thorax appears intact without fractures or deformities. Lower cervical spine fixation hardware. Soft Tissues: Soft tissues overlying the chest wall are unremarkable. IMPRESSION: No acute cardiopulmonary abnormalities are identified. Electronically Signed by: Geraldine Ayoub MD. (03/22/2024 05:26:56 EST)
[2024-03-22] MEDS ORDERED: TYLENOL EXTRA STRENGTH 500 MG ONE (10:16)
[2024-03-22] MEDS: TYLENOL EXTRA STRENGTH 500 MG PO STA (10:18)
[2024-03-22 10:20] VITALS: O2SAT 97
--- NOTE | 2024-03-22 11:05 | PCM.CONS ---
History of Present Illness - Date of Consult Date of Encounter: 03/22/24 Consulting Director [employer]: RENNY MCCURDY MD Requesting Provider: Attending Provider: Dr. Jeffries Primary Care Provider: PCP: CAROLINE CASTAÑEDA Consent was: Given for this tele-med encounter - Consult Narrative Reason for Consult: Chest pain HPI: Patient is a 53 yo female with Ori-Danlos Syndrome, hypothyroidism, GERD, and anxiety who presented with chest and leg pain.Prior to last night she experienced 5-6 episodes of left-sided chest pain lasting less than 2 minutes at a time. These episodes were not related to exertion or meals. She has also been bothered by calf pain in both of her calf muscles. Last night she awoke from her sleep with left-sided chest discomfort, shortness of breath, and leg pain. Having all 3 symptoms at the same time was overbearing prompting her rrival here. She denied any nausea or vomiting. She felt better in the supine position compared with standing up. Troponin-I < 0.012 x3. No ischemic changes on ECG. D-dimer was unremarkable. She denies any prior cardiac history or cardiac work- up. cc:: The requesting physician will be sent a copy of the consult. Review of Systems - Review of Systems All systems: all other systems reviewed and were unremarkable (Pertinent positives and negatives in HPI.) - Past Medical History Past Medical History: Yes Neurological History: No Pertinent History ENT History: Other Cardiac History: No Pertinent History Respiratory History: No Pertinent History Endocrine Medical History: No Pertinent History Musculoskelatal History: Other (Ehler's Danlos Syndrome) GI Medical History: GERD, Gallbladder Disease, Other History: No Pertinent History Pyscho-Social History: Anxiety, Other Reproductive Disorders: Other Comment: allergies, TMJ, H-pylori, EDS/ HMS hypermobility, occipital neurolagia, Graves Disease, PTSD, mastoiditis, dilated esophagus - Past Surgical History Past Surgical History: Yes GI Surgical History: Cholecystectomy Female Surgical History: Hysterectomy Other Surgical History: sinus surgery, anchored WINTER behind left ear, neck, bleeding ulcer repair - Social History Smoking Status: Former smoker Exposure to second hand smoke: No Alcohol: None Drug Use: none - Social Determinants of Health Will the patient participate in the screening: Declined to provide Do you worry about a steady place to live?: No In the past 12 months,have you had to go without utilities?: No Have you or anyone in your house had to go without enough: No Transportation Issues: No Has anyone in your support network made you feel unsafe?: No Medications & Allergies Home Medications: Home Medication List ALPRAZolam 1 MG [Xanax 1 mg] 1 mg PO BID 09/18/23 [History Confirmed 03/22/24] Fluticasone Propionate 1 spray INTRANASAL DAILY PRN 10/29/23 [History Confirmed 03/22/24] Levothyroxine Sodium 50 mcg PO DAILY 10/29/23 [History Confirmed 03/22/24] Tizanidine HCl 4 mg [Zanaflex 4 MG] 6 mg PO HS 12/08/23 [History Confirmed 03/22/24] Allergies/Adverse Reactions: Allergies Allergy/AdvReac Type Severity Reaction Status Date / Time Penicillins Allergy Verified 12/08/23 10:03 Exam - Vitals Vital Signs: Vital Signs - 24 hr Temp Pulse Pulse Resp BP BP Pulse Ox 03/22/24 10:00 96 H 26 H 108/79 97 03/22/24 09:30 97 H 18 104/72 96 03/22/24 09:00 97.6 F 96 H 19 98/71 96 03/22/24 08:46 88 18 115/75 95 03/22/24 08:45 98 H 21 95 03/22/24 08:40 85 18 96 03/22/24 08:30 89 17 96 03/22/24 08:20 87 17 96 03/22/24 08:10 86 17 96 03/22/24 08:00 86 19 96 03/22/24 07:50 92 H 23 95 03/22/24 07:40 96 H 18 03/22/24 07:35 96 H 18 03/22/24 07:00 83 16 113/83 96 03/22/24 06:30 86 23 104/74 95 03/22/24 06:00 73 16 100/67 96 03/22/24 05:30 87 22 109/73 98 03/22/24 05:01 84 18 123/76 96 03/22/24 04:30 101/64 97 03/22/24 04:00 110/71 97 03/22/24 03:30 105 H 26 H 145/81 99 03/22/24 03:00 115 H 17 128/99 98 03/22/24 02:57 98 03/22/24 02:31 88 18 140/99 97 03/22/24 02:24 98.2 F 101 H 92 H 22 122/92 100 03/22/24 02:20 98 General:: alert and oriented x 4, mild distress (from pain) HEENT: EOMI, No JVD Cardiovascular Exam: regular rate/rhythm, normal heart sounds, normal peripheral pulses, edema (trace nonpitting edema above ankles), No murmur, No friction rub, No gallop Respiratory Exam: normal breath sounds, chest tenderness (Left parasternal area reproduced on exam) SpO2: 97 Gastrointestinal/Abdomen Exam: normal bowel sounds Skin Exam: normal color, warm Extremity Exam: edema (as above) Neurologic: No motor deficits Results Vital Signs: Vital Signs - 24 hr Temp Pulse Pulse Resp BP BP Pulse Ox 03/22/24 10:00 96 H 26 H 108/79 97 03/22/24 09:30 97 H 18 104/72 96 03/22/24 09:00 97.6 F 96 H 19 98/71 96 03/22/24 08:46 88 18 115/75 95 03/22/24 08:45 98 H 21 95 03/22/24 08:40 85 18 96 03/22/24 08:30 89 17 96 03/22/24 08:20 87 17 96 03/22/24 08:10 86 17 96 03/22/24 08:00 86 19 96 03/22/24 07:50 92 H 23 95 03/22/24 07:40 96 H 18 03/22/24 07:35 96 H 18 03/22/24 07:00 83 16 113/83 96 03/22/24 06:30 86 23 104/74 95 03/22/24 06:00 73 16 100/67 96 03/22/24 05:30 87 22 109/73 98 03/22/24 05:01 84 18 123/76 96 03/22/24 04:30 101/64 97 03/22/24 04:00 110/71 97 03/22/24 03:30 105 H 26 H 145/81 99 03/22/24 03:00 115 H 17 128/99 98 03/22/24 02:57 98 03/22/24 02:31 88 18 140/99 97 03/22/24 02:24 98.2 F 101 H 92 H 22 122/92 100 03/22/24 02:20 98 Pain Assessment - Last Documented Pain Intensity 9 Pain Scale Used 0-10 Pain Scale Intake and Output: Intake & Output 03/19/24 03/20/24 03/21/24 03/22/24 11:59 11:59 11:59 11:59 Weight 74.5 kg LAB: I have reviewed the Labs in Responsa. Radiology Exams: Radiology Procedures Category Date Time Status CHEST 1 VIEW (PORTABLE) Routine Exams 03/22/24 09:28 Completed CXR (AP) 03/22/2024: NACPD Tracing 1 Attestation: I have reviewed this EKG and interpreted as documented below. EKG Narrative: 03/22/2024: NSR at 95 bpm. Nonspecific T wave abnormality. 09/18/2023: NSR at 95 bpm. Nonspecific T wave abnormality. Assessment & Plan (1) Chest pain Current Visit: Yes Status: Acute Assessment & Plan: Presentation is not consistent with acute coronary syndrome. Musculoskeletal component is reproducible on exam. Costochondritis may be related to her Ori- Danlos Syndrome. Serial troponin-I HS is negative. ECG is without ischemic changes. Nonspecific T wave abnormality seen on prior ECG. HEART score = 1 places her in a low risk group. If patient is concerned for CAD, can evaluate with an outpatient coronary CTA. OK for discharge from the cardiac standpoint. Code(s): R07.9 - CHEST PAIN, UNSPECIFIED (2) Ori-Danlos syndrome Current Visit: Yes Status: Chronic Assessment & Plan: Has long history of chronic symptoms. As above, may be related to her chest discomfort. Code(s): Q79.60 - ORI-DANLOS SYNDROME, UNSPECIFIED - Encounter Encounter: "The entirety of this encounter was performed via Telemedicine using audio and visual "
[2024-03-22] MEDS ORDERED: NORCO 10-325 MG ONE (12:16)
[2024-03-22] MEDS: NORCO 10-325 MG PO STA (12:18)
[2024-03-22 12:27] VITALS: BP 115/86; PULSE 95; RESP 17
== END 2024-03-22 12:42 | disposition home or self-care (01) ==
LOC: ED 02:19
DX: R07.9 Chest pain, unspecified (principal); I24.9 Acute ischemic heart disease, unspecified; Q79.60 Ehlers-Danlos syndrome, unspecified; Z79.899 Other long term (current) drug therapy
CPT/HCPCS: 36415; 71045; 80053; 80143; 80179; 80307; 81001; 82077; 83735; 83880; 84484; 85025; 85379; 93005; 93041; 94760; 96374; 96375; 99284; 99285; J1885; A9270-GY

== ENCOUNTER 2024-04-21 02:35 | Emergency (ER) | payer MEDICARE ==
[2024-04-21 02:54] VITALS: TEMP 97.2
[2024-04-21 03:32] LABS: Absolute Neutrophil Ct (ANC) 3.81 x10^3/uL (1.56-6.13); BASOPHIL % 0.2 % (0.1-1.2); Basophil (Absolute #) 0.01 x10^3/uL (0.01-0.08); Eosinophil % 0.2 % (0.7-5.8); Eosinophil (Absolute #) 0.01 x10^3/uL (0.04-0.36); Hematocrit 34.7 % (34.1-44.9); Hemoglobin 11.8 g/dL (11.2-15.7); IMMATURE GRAN % 1.6 % (0.001-0.429); Lymphocyte (Absolute #) 1.84 x10^3/uL (1.18-3.74); Lymphocytes % 29.7 % (19.3-51.7); Mean Cell Volume 92.5 fL (79.4-94.8); Mean Corpuscular Hemoglobin 31.5 pg (25.6-32.2); Mean Platelet Volume 9.3 fL (9.4-12.3); Monocyte (Absolute #) 0.42 x10^3/uL (0.24-0.86); Monocytes % 6.8 % (4.7-12.5); Neutrophil % 61.5 % (34.0-71.1); Platelet Count 290 x10^3/uL (182-369); Red Blood Count 3.75 x10^6/uL (3.93-5.22); Red Cell Distribution Width 13.2 % (11.7-14.4); White Blood Count 6.2 x10^3/uL (3.98-10.04)
[2024-04-21 03:42] LABS: ALBUMIN 4.5 g/dL (3.5-5.0); ANION GAP 14.9 MEQ/L (5-15); BILIRUBIN,TOTAL 0.4 mg/dL (0.2-1.3); Calcium 9.5 mg/dL (8.4-10.2); Creatinine 1 0.56 mg/dL (0.52-1.04); EST GLOMERULAR FILTRATION RATE 107.7 ML/MIN; Potassium 4.1 mmol/L (3.5-5.1); Total Protein 7.2 g/dL (6.3-8.2)
[2024-04-21 03:44] LABS: Appearance Clear (Clear); Bacteria None Seen /HPF (None Seen); Bilirubin Negative (Negative); Blood Trace (Negative); Epithelial Cells None Seen /HPF (None Seen); Glucose, Urine Negative (Negative); Hyaline Casts NONE SEEN /LPF (0-2); Ketones Negative (Negative); Leukocyte Esterase Negative (Negative); Nitrite Negative (Negative); Protein,Urine Dip Negative (Negative); RBC 0-2 /HPF (0-5); Specific Gravity 1.015 (1.005-1.030); Urobilinogen 0.2 mg/dL (0.2); WBC 0-2 /HPF (0-5)
[2024-04-21] MEDS ORDERED: BABY ASPIRIN 81 MG CHEW ONE (04:34)
[2024-04-21] MEDS: BABY ASPIRIN 81 MG CHEW PO ONE (04:34)
[2024-04-21] MEDS ORDERED: TORAdol 30 mg Injection ONE (04:34)
[2024-04-21] MEDS: TORAdol 30 mg Injection IV ONE (04:35)
[2024-04-21] MEDS ORDERED: Ativan 2 MG/1 ML VIAL ONE (04:50)
[2024-04-21] MEDS: Ativan 2 MG/1 ML VIAL IV ONE (04:50)
--- NOTE | 2024-04-21 04:50 | ERPHSYRPT ---
- History of Present Illness Time Seen by Provider: 04/21/24 04:31 Historian: patient Exam Limitations: no limitations Patient Subjective Stated Complaint: c/o weakness and chest pain Triage Nursing Assessment: patient brought into by ambulance with c/o of left sides weakness and chest pain. patient rates pain 7/10 and states that it radiates into jaw and neck and back. Denies any vomiting or diarrhea, but does have nausea, chest pain has been going on for a few weeks but weakness started 45 min prior to arrival. lung sounds clear, S1 and S2 heard, pulses normal, patient is slightly hypertensive, skin w/n/d, PERRLA present, NIH stroke scale was negative, patient is AxOx3 Physician History: 53-year-old female with history of anxiety presented in the ER with complaint of chest pain and some weakness on the left side. Patient reports she has off-and-on weakness for quite some time and started to have chest pain almost 45 minutes prior to arrival substernal/left-sided with some radiation to the back, neck and jaw area, mild to moderate, aggravated with movements of the jaw and noticed some clicks in the TMJ area. Patient denies any difficulty breathing. Patient is very anxious and concerned because she was evaluated here almost a month ago, saw cardiology and was recommended outpatient follow-up. Patient has upcoming appointment in [address], echocardiogram and MRI of her brain. During my evaluation patient denies any left sided numbness tingling or focal weakness. Patient is very anxious, crying saying "I am sorry that I am wasting everyone's time" patient reports she also feels a band of muscle in the left upper chest which hurts to deep palpation. Nitro Today/Relief: no nitro taken today Aspirin Treatment Today: unknown Allergies/Adverse Reactions: Penicillins Allergy (Verified 04/21/24 02:54) Home Medications: ALPRAZolam 1 MG [Xanax 1 mg] 1 mg PO BID 09/18/23 [History] Fluticasone Propionate 1 spray INTRANASAL DAILY PRN 10/29/23 [History] Tizanidine HCl 4 mg [Zanaflex 4 MG] 4 mg PO BID 12/08/23 [History] Acetaminophen 325 mg [Tylenol 325 mg] 500 mg PO TID 04/21/24 [History] Famotidine [Pepcid] 20 mg PO DAILY PRN PRN 04/21/24 [History] Hx Tetanus, Diphtheria Vaccination/Date Given: No Hx Influenza Vaccination/Date Given: No Hx Pneumococcal Vaccination/Date Given: No Travel Risk - International Travel Have you traveled outside of the country in past 3 weeks: No - Emerging Infectious Disease Are you exhibiting symptoms associated with any current EIDs: No Symptoms: Abdominal Pain - Review of Systems Constitutional: No Symptoms Ears, Nose, & Throat: No Symptoms Respiratory: No Symptoms Cardiac: Chest Pain Abdominal/Gastrointestinal: No Symptoms Genitourinary Symptoms: No Symptoms Musculoskeletal: Neck Pain, Other Skin: No Symptoms Neurological: No Symptoms Psychological: No Symptoms, Anxiety Endocrine: No Symptoms Hematologic/Lymphatic: No Symptoms - Past Medical History Pertinent Past Medical History: Yes Neurological History: No Pertinent History ENT History: Other Cardiac History: No Pertinent History Respiratory History: No Pertinent History Endocrine Medical History: No Pertinent History Musculoskeletal History: Other GI Medical History: GERD, Gallbladder Disease, Other History: No Pertinent History Psycho-Social History: Anxiety, Other Female Reproductive Disorders: Other Other Medical History: allergies, TMJ, H-pylori, EDS/ HMS hypermobility, occipital neurolagia, Graves Disease, PTSD, mastoiditis, dilated esophagus, TBI, low cholesterol, left flank pain - Past Surgical History Past Surgical History: Yes Gastrointestinal: Cholecystectomy Female Surgical History: Hysterectomy Other Surgical History: sinus surgery, anchored WINTER behind left ear, neck, bleeding ulcer repair - Social History Smoking Status: Current every day smoker Exposure to second hand smoke: No Drug Use: none - Social Determinants of Health Will the patient participate in the screening: Declined to provide Do you worry about a steady place to live?: No In the past 12 months,have you had to go without utilities?: No Transportation Issues: No Has anyone in your support network made you feel unsafe?: No Have you or anyone in your house had to go w/o enough food: No - Nursing Vital Signs Nursing Vital Signs: Initial Vital Signs Temperature 97.2 F 04/21/24 02:37 Pulse Rate 87 04/21/24 02:37 Respiratory Rate 20 04/21/24 02:37 Blood Pressure 150/103 04/21/24 02:37 O2 Sat by Pulse Oximetry 99 04/21/24 02:37 Pain Scale Pain Intensity 7 - Physical Exam General Appearance: no apparent distress, alert, anxiety Eye Exam: PERRL/EOMI Ears, Nose, Throat Exam: other (Bilateral TMJ clicks) Neck Exam: normal inspection, non-tender, supple, full range of motion Respiratory Exam: normal breath sounds, chest tenderness (Mild tenderness left anterior chest wall), lungs clear Cardiovascular Exam: regular rate/rhythm, normal heart sounds Gastrointestinal/Abdomen Exam: soft, normal bowel sounds, No tenderness Back Exam: normal inspection Extremity Exam: normal inspection, normal range of motion Neurologic Exam: alert, oriented x 3, cooperative, tool die 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 II-XII nml as tested, nml station & gait, sensation nml, motor deficits, No normal mood/affect, No nml cerebellar function, No sensory deficit Skin Exam: normal color SpO2 Interpretation: normal SpO2: 96 O2 Delivery: Room Air - Course EKG Interpreted by Me: RATE (94), Sinus Rhythm, NORMAL AXIS, NORMAL INTERVALS, Non-specific ST Changes Ordered Tests: Medication Summary Discontinued Medications Generic Name Dose Route Start Last Admin Trade Name Freq PRN Reason Stop Dose Admin Aspirin 324 mg 04/21/24 04:28 04/21/24 04:34 Aspirin 81 Mg Tab.Chew PO 04/21/24 04:29 324 mg STAT ONE Administration Aspirin Confirm 04/21/24 04:34 Aspirin 81 Mg Tab.Chew Administered 04/21/24 04:35 Dose 324 mg .ROUTE .STK-MED ONE Ketorolac Tromethamine 30 mg 04/21/24 04:28 04/21/24 04:35 Ketorolac Tromethamine 30 Mg/Ml Inj IV 04/21/24 04:29 30 mg STAT ONE Administration Ketorolac Tromethamine Confirm 04/21/24 04:34 Ketorolac Tromethamine 30 Mg/Ml Inj Administered 04/21/24 04:35 Dose 30 mg .ROUTE .STK-MED ONE Lorazepam 1 mg 04/21/24 04:44 04/21/24 04:50 Lorazepam 2 Mg/1 Ml 2 Mg Vial IV 04/21/24 04:45 1 mg STAT ONE Administration Lorazepam Confirm 04/21/24 04:50 Lorazepam 2 Mg/1 Ml 2 Mg Vial Administered 04/21/24 04:51 Dose 2 mg .ROUTE .STK-MED ONE Lab/Rad Data: Laboratory Result Diagrams 04/21/24 03:30 04/21/24 03:30 Laboratory Results 04/21/24 04/21/24 04/21/24 Range/Units 05:30 03:30 03:30 WBC (3.98-10.04) x10^3/uL RBC (3.93-5.22) x10^6/uL Hgb (11.2-15.7) g/dL Hct (34.1-44.9) % MCV (79.4-94.8) fL MCH (25.6-32.2) pg MCHC (32.2-35.5) g/dL RDW (11.7-14.4) % Plt Count (182-369) x10^3/uL MPV (9.4-12.3) fL Gran % (34.0-71.1) % Immature Gran % (Auto) (0.001-0.429) % Nucleat RBC Rel Count (0.00-0.2) % Eos # (Auto) (0.04-0.36) x10^3/uL Immature Gran # (Auto) (0.001-0.031) x10^3u/L Absolute Lymphs (auto) (1.18-3.74) x10^3/uL Absolute Monos (auto) (0.24-0.86) x10^3/uL Absolute Nucleated RBC (0.00-0.012) x10^3u/L Lymphocytes % (19.3-51.7) % Monocytes % (4.7-12.5) % Eosinophils % (0.7-5.8) % Basophils % (0.1-1.2) % Absolute Granulocytes (1.56-6.13) x10^3/uL Basophils # (0.01-0.08) x10^3/uL Sodium 139 (135-145) mmol/L Potassium 4.1 (3.5-5.1) mmol/L Chloride 108 H (98-107) mmol/L Carbon Dioxide 21 L (22-30) mmol/L Anion Gap 14.9 (5-15) MEQ/L BUN 16 (7-17) mg/dL Creatinine 0.56 (0.52-1.04) mg/dL Estimated GFR 107.7 ML/MIN Glucose 107 H (74-106) mg/dL Calcium 9.5 (8.4-10.2) mg/dL Total Bilirubin 0.40 (0.2-1.3) mg/dL AST 22 (14-36) U/L ALT 22 (0-35) U/L Alkaline Phosphatase 43 (38-126) U/L Troponin 0.00 (0.00-0.03) ng/mL Troponin I < 0.012 (0.000-0.033) ng/mL Serum Total Protein 7.2 (6.3-8.2) g/dL Albumin 4.5 (3.5-5.0) g/dL Urine Color (Yellow) Urine Appearance (Clear) Urine pH (4.6-8.0) Ur Specific Lowber (1.005-1.030) Urine Protein (Negative) Urine Glucose (UA) (Negative) mg/dL Urine Ketones (Negative) Urine Blood (Negative) Urine Nitrite (Negative) Urine Bilirubin (Negative) Urine Urobilinogen (0.2) mg/dL Ur Leukocyte Esterase (Negative) U Hyaline Cast (Auto) (0-2) /LPF Urine Microscopic RBC (0-5) /HPF Urine Microscopic WBC (0-5) /HPF Ur Epithelial Cells (None Seen) /HPF Urine Bacteria (None Seen) /HPF Urine Culture Reflexed (NO) 04/21/24 04/21/24 Range/Units 03:30 03:28 WBC 6.2 (3.98-10.04) x10^3/uL RBC 3.75 L (3.93-5.22) x10^6/uL Hgb 11.8 (11.2-15.7) g/dL Hct 34.7 (34.1-44.9) % MCV 92.5 (79.4-94.8) fL MCH 31.5 (25.6-32.2) pg MCHC 34.0 (32.2-35.5) g/dL RDW 13.2 (11.7-14.4) % Plt Count 290 (182-369) x10^3/uL MPV 9.3 L (9.4-12.3) fL Gran % 61.5 (34.0-71.1) % Immature Gran % (Auto) 1.6 H (0.001-0.429) % Nucleat RBC Rel Count 0.0 (0.00-0.2) % Eos # (Auto) 0.01 L (0.04-0.36) x10^3/uL Immature Gran # (Auto) 0.10 H (0.001-0.031) x10^3u/L Absolute Lymphs (auto) 1.84 (1.18-3.74) x10^3/uL Absolute Monos (auto) 0.42 (0.24-0.86) x10^3/uL Absolute Nucleated RBC 0.00 (0.00-0.012) x10^3u/L Lymphocytes % 29.7 (19.3-51.7) % Monocytes % 6.8 (4.7-12.5) % Eosinophils % 0.2 L (0.7-5.8) % Basophils % 0.2 (0.1-1.2) % Absolute Granulocytes 3.81 (1.56-6.13) x10^3/uL Basophils # 0.01 (0.01-0.08) x10^3/uL Sodium (135-145) mmol/L Potassium (3.5-5.1) mmol/L Chloride (98-107) mmol/L Carbon Dioxide (22-30) mmol/L Anion Gap (5-15) MEQ/L BUN (7-17) mg/dL Creatinine (0.52-1.04) mg/dL Estimated GFR ML/MIN Glucose (74-106) mg/dL Calcium (8.4-10.2) mg/dL Total Bilirubin (0.2-1.3) mg/dL AST (14-36) U/L ALT (0-35) U/L Alkaline Phosphatase (38-126) U/L Troponin (0.00-0.03) ng/mL Troponin I (0.000-0.033) ng/mL Serum Total Protein (6.3-8.2) g/dL Albumin (3.5-5.0) g/dL Urine Color Yellow (Yellow) Urine Appearance Clear (Clear) Urine pH 6.0 (4.6-8.0) Ur Specific Lowber 1.015 (1.005-1.030) Urine Protein Negative (Negative) Urine Glucose (UA) Negative (Negative) mg/dL Urine Ketones Negative (Negative) Urine Blood Trace (Negative) Urine Nitrite Negative (Negative) Urine Bilirubin Negative (Negative) Urine Urobilinogen 0.2 (0.2) mg/dL Ur Leukocyte Esterase Negative (Negative) U Hyaline Cast (Auto) NONE SEEN (0-2) /LPF Urine Microscopic RBC 0-2 (0-5) /HPF Urine Microscopic WBC 0-2 (0-5) /HPF Ur Epithelial Cells None Seen (None Seen) /HPF Urine Bacteria None Seen (None Seen) /HPF Urine Culture Reflexed NO (NO) - Progress Progress: improved, re-examined Air Movement: good Progress Note: 53-year-old is evaluated in the ER for chest pain and left-sided numbness. Patient has no focal neurodeficit during my evaluation. Patient chest pain is also improving. Her chest pain is reproducible with palpation and does have history of EDS. She is given symptomatic treatment for pain and anxiety, on reevaluation she is feeling better. She has negative tropo nins x 2. Chemistries fairly unremarkable. EKG is normal sinus rhythm with no acute ST elevations. Refused chest x-ray. She has upcoming appointment with cardiology and CT coronaries. Low heart sc ore, do not think patient needs to be admitted, can be discharged with outpatient follow-up. I have discussed the results of workup with patient and plan of outpatient follow-up which she understands and agrees. Stable for discharge. Complexity of problems addressed: Moderate acute Complexity of data reviewed/analyzed: Moderate to extensive Risk of morbidity/mortality with current condition. Mild to moderate risk Blood Culture(s) Obtained: No Antibiotics given: No Counseled pt/family regarding: lab results, diagnosis, need for follow-up Medical Desision Making - Diagnostic Testing Diagnostic test were ordered, analyzed, and reviewed by me: Yes - Risk of complications The pt has a mod risk of morbidity or mortality based on: Need for prescription drug management - Departure Departure Disposition: Home Clinical Impression: Atypical chest pain, Anxiety, TMJ click Condition: Stable Critical Care Time: No Referrals: CAROLINE CASTAÑEDA NP [Primary Care Provider] - Follow up with PCP 1 day Instructions: Chest pain in adults - ED discharge instructions Additional Instructions: Take Tylenol/ibuprofen as needed. Follow-up with primary care and cardiology as recommended. Keep appointment for cardiac CT, echo and MRI as directed return to ER for intractable chest pain, difficulty breathing, numbness tingling focal weakness etc.
[2024-04-21 06:01] VITALS: BP 128/95; PULSE 78; RESP 21
[2024-04-26 16:58] VITALS: O2SAT 96
== END 2024-04-21 06:40 | disposition home or self-care (01) ==
LOC: ED 02:35
DX: R07.89 Other chest pain (principal); F41.9 Anxiety disorder, unspecified; M26.603 Bilateral temporomandibular joint disorder, unspecified; Z79.899 Other long term (current) drug therapy; Z72.0 Tobacco use
CPT/HCPCS: 36415; 80053; 81001; 84484; 85025; 93005; 96374; 96375; 99284; J1885; J2060; A9270-GY

== ENCOUNTER 2024-11-15 16:13 | Emergency (ER) | payer MEDICARE ==
[2024-11-15 16:21] VITALS: TEMP 98.7
--- NOTE | 2024-11-15 16:35 | ERPHSYRPT ---
- History of Present Illness Time Seen by Provider: 11/15/24 16:15 Source: patient Patient Subjective Stated Complaint: Pt. states, "I went to pain management for pain in my neck. While I was down there I started having pain in my left shoulder and in my left leg. They told me my blood pressure was 156/110 and 145/109. They said if I was short of breathe I should go to the ER." Triage Nursing Assessment: Pt. ambulated to room with minimal difficulty, A&Ox3, Skin P/W/D, REsp. even unlabored, uncontrolled movements of lower ext and mouth noted, she has hx of EDS. Pleasant and cooperative. Physician History: A 54-year-old female with history of chronic issues with neck and shoulder pain. She was at a pain clinic today. She presents for shortness of breath. She has no anterior chest pain. She had cardiac workup earlier in the year that was negative with some negative outpatient studies. She reports today that she has had increasing pain in the back of her neck that occurred while after sleeping wrong. She states it was she was seen in the pain clinic because that pain in her neck radiates to her left arm and shoulder. She denies any anterior chest pain. She has had no exertional symptoms. She reports the pain in her neck makes her feel short of breath. She states he was at the pain clinic to make sure that there was no heart issues. She describes a sense of where his similar to her past workups. 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 Heart score Allergies/Adverse Reactions: Penicillins Allergy (Verified 04/21/24 02:54) Home Medications: ALPRAZolam 1 MG [Xanax 1 mg] 1 mg PO BID 09/18/23 [History] Fluticasone Propionate 1 spray INTRANASAL DAILY PRN 10/29/23 [History] Acetaminophen 325 mg [Tylenol 325 mg] 500 mg PO TID 04/21/24 [History] Cyclobenzaprine HCl 10 mg [Cyclobenzaprine 10 MG] 10 mg PO BID 11/15/24 [History] Suzetrigine [Journavx] 50 mg PO DAILY 11/15/24 [History] Hx Tetanus, Diphtheria Vaccination/Date Given: No Hx Influenza Vaccination/Date Given: No Hx Pneumococcal Vaccination/Date Given: No Travel Risk - International Travel Have you traveled outside of the country in past 3 weeks: No - Emerging Infectious Disease Are you exhibiting symptoms associated with any current EIDs: No Symptoms: Abdominal Pain - Review of Systems Constitutional: No Fever, No Chills Eyes: No Symptoms Ears, Nose, & Throat: No Symptoms Respiratory: Dyspnea, No Cough, No Dyspnea on Exertion (PAZ) Cardiac: No Chest Pain, No Edema, No Syncope Abdominal/Gastrointestinal: No Abdominal Pain, No Nausea, No Vomiting, No Diarrhea Genitourinary Symptoms: No Dysuria Musculoskeletal: Neck Pain, Joint Pain, No Back Pain Skin: No Rash Neurological: No Dizziness, No Focal Weakness, No Sensory Changes Psychological: No Symptoms Endocrine: No Symptoms All Other Systems: Reviewed and Negative - Past Medical History Pertinent Past Medical History: Yes Neurological History: No Pertinent History ENT History: Other Cardiac History: No Pertinent History Respiratory History: No Pertinent History Endocrine Medical History: No Pertinent History Musculoskeletal History: Other GI Medical History: GERD, Gallbladder Disease, Other History: No Pertinent History Psycho-Social History: Anxiety, Other Female Reproductive Disorders: Other Other Medical History: allergies, TMJ, H-pylori, EDS/ HMS hypermobility, occipital neurolagia, Graves Disease, PTSD, mastoiditis, dilated esophagus, TBI, low cholesterol, left flank pain - Past Surgical History Past Surgical History: Yes Gastrointestinal: Cholecystectomy Female Surgical History: Hysterectomy Other Surgical History: sinus surgery, anchored WINTER behind left ear, neck, bleeding ulcer repair - Social History Smoking Status: Former smoker Exposure to second hand smoke: No Drug Use: none - Social Determinants of Health Will the patient participate in the screening: Declined to provide - Nursing Vital Signs Nursing Vital Signs: Initial Vital Signs Temperature 98.7 F 11/15/24 16:14 Pulse Rate 121 H 11/15/24 16:14 Respiratory Rate 21 11/15/24 16:14 Blood Pressure 149/95 11/15/24 16:14 O2 Sat by Pulse Oximetry 98 11/15/24 16:14 Pain Scale Pain Intensity 7 - Physical Exam General Appearance: no apparent distress, alert, other (Anxious appearing but oriented x 3) Eye Exam: PERRL/EOMI, eyes nml inspection Ears, Nose, Throat Exam: normal ENT inspection, TMs normal, pharynx normal, moist mucous membranes Neck Exam: normal inspection, supple, full range of motion, other (With some reproducible tenderness over the left posterior neck and shoulder) Respiratory Exam: normal breath sounds, lungs clear, No respiratory distress Cardiovascular Exam: regular rate/rhythm, normal heart sounds, normal peripheral pulses Gastrointestinal/Abdomen Exam: soft, normal bowel sounds, No tenderness, No mass Back Exam: normal inspection, normal range of motion, No CVA tenderness, No vertebral tenderness Extremity Exam: normal inspection, normal range of motion, pelvis stable Neurologic Exam: alert, oriented x 3, cooperative, normal mood/affect, nml cerebellar function, nml station & gait, sensation nml, No motor deficits Skin Exam: normal color, warm, dry, No rash Lymphatic Exam: No adenopathy SpO2: 98 - Course EKG Interpreted by Me: Other (Sinus rhythm rate of [address] and T wave abnormality) Ordered Tests: Active Orders 24 hr Category Date Time Status Beater Boss STAT Care 11/15/24 16:25 Completed EKG-ER Only STAT Care 11/15/24 16:27 Completed CHEST 1 VIEW (PORTABLE) Stat Exams 11/15/24 16:25 Completed BMP Stat Lab 11/15/24 16:30 Completed CBC W DIFF Stat Lab 11/15/24 16:30 Completed D-DIMER QUANTITATIVE Stat Lab 11/15/24 16:30 Completed TROPONIN Q4H Lab 11/15/24 16:30 Completed TROPONIN Q4H Lab 11/15/24 18:15 Completed Medication Summary Discontinued Medications Generic Name Dose Route Start Last Admin Trade Name Cristhianq PRN Reason Stop Dose Admin Ketorolac Tromethamine 15 mg 11/15/24 17:15 11/15/24 17:28 Ketorolac Tromethamine 30 Mg/Ml Inj IV 11/15/24 17:16 15 mg STAT ONE Administration Ketorolac Tromethamine Confirm 11/15/24 17:23 Ketorolac Tromethamine 30 Mg/Ml Inj Administered 11/15/24 17:24 Dose 30 mg .ROUTE .H5-Oxatis ONE Lab/Rad Data: Laboratory Result Diagrams 11/15/24 16:30 11/15/24 16:30 Laboratory Results 11/15/24 11/15/24 11/15/24 Range/Units 18:15 16:30 16:30 WBC (3.98-10.04) x10^3/uL RBC (3.93-5.22) x10^6/uL Hgb (11.2-15.7) g/dL Hct (34.1-44.9) % MCV (79.4-94.8) fL MCH (25.6-32.2) pg MCHC (32.2-35.5) g/dL RDW (11.7-14.4) % Plt Count (182-369) x10^3/uL MPV (9.4-12.3) fL Gran % (34.0-71.1) % Immature Gran % (Auto) (0.001-0.429) % Nucleat RBC Rel Count (0.00-0.2) % Eos # (Auto) (0.04-0.36) x10^3/uL Immature Gran # (Auto) (0.001-0.031) x10^3u/L Absolute Lymphs (auto) (1.18-3.74) x10^3/uL Absolute Monos (auto) (0.24-0.86) x10^3/uL Absolute Nucleated RBC (0.00-0.012) x10^3u/L Lymphocytes % (19.3-51.7) % Monocytes % (4.7-12.5) % Eosinophils % (0.7-5.8) % Basophils % (0.1-1.2) % Absolute Granulocytes (1.56-6.13) x10^3/uL Basophils # (0.01-0.08) x10^3/uL D-Dimer 0.20 (0.0-0.50) mg/L Sodium (135-145) mmol/L Potassium (3.5-5.1) mmol/L Chloride (98-107) mmol/L Carbon Dioxide (22-30) mmol/L Anion Gap (5-15) MEQ/L BUN (7-17) mg/dL Creatinine (0.52-1.04) mg/dL Estimated GFR ML/MIN Glucose (74-106) mg/dL Calcium (8.4-10.2) mg/dL Troponin I < 0.012 < 0.012 (0.000-0.033) ng/mL 11/15/24 11/15/24 Range/Units 16:30 16:30 WBC 8.0 (3.98-10.04) x10^3/uL RBC 4.19 (3.93-5.22) x10^6/uL Hgb 12.7 (11.2-15.7) g/dL Hct 37.6 (34.1-44.9) % MCV 89.7 (79.4-94.8) fL MCH 30.3 (25.6-32.2) pg MCHC 33.8 (32.2-35.5) g/dL RDW 12.8 (11.7-14.4) % Plt Count 330 (182-369) x10^3/uL MPV 9.3 L (9.4-12.3) fL Gran % 58.0 (34.0-71.1) % Immature Gran % (Auto) 0.3 (0.001-0.429) % Nucleat RBC Rel Count 0.0 (0.00-0.2) % Eos # (Auto) 0.20 (0.04-0.36) x10^3/uL Immature Gran # (Auto) 0.02 (0.001-0.031) x10^3u/L Absolute Lymphs (auto) 2.68 (1.18-3.74) x10^3/uL Absolute Monos (auto) 0.41 (0.24-0.86) x10^3/uL Absolute Nucleated RBC 0.00 (0.00-0.012) x10^3u/L Lymphocytes % 33.6 (19.3-51.7) % Monocytes % 5.1 (4.7-12.5) % Eosinophils % 2.5 (0.7-5.8) % Basophils % 0.5 (0.1-1.2) % Absolute Granulocytes 4.63 (1.56-6.13) x10^3/uL Basophils # 0.04 (0.01-0.08) x10^3/uL D-Dimer (0.0-0.50) mg/L Sodium 138 (135-145) mmol/L Potassium 4.0 (3.5-5.1) mmol/L Chloride 107 (98-107) mmol/L Carbon Dioxide 22 (22-30) mmol/L Anion Gap 13.4 (5-15) MEQ/L BUN 13 (7-17) mg/dL Creatinine 0.77 (0.52-1.04) mg/dL Estimated GFR 90.5 ML/MIN Glucose 159 H (74-106) mg/dL Calcium 9.5 (8.4-10.2) mg/dL Troponin I (0.000-0.033) ng/mL [address], [address] [place], [place] [address] Name: HYACINTH BLUNT Attending Physician: IMAGING REPORT : 1970 Age: 54 Sex: F Location: ED Report #: [id number] Exam Date: 11/15/24 Status: PRE ER Radiology #: Procedures: [id number] RAD/CHEST 1 VIEW (PORTABLE) Indication: Arm pain. Dyspnea. Comparison: March 22, 2024 Portable chest again demonstrates normal heart and lungs. Bony thorax intact again with cervical fusion hardware. No new/acute findings. Reported by: RHYS JANSEN DO Signed by: RHYS JANSEN DO Signed date/time: 11/15/24 1644 Copies to: - Progress Progress: improved Progress Note: 11/15/24 16:34 Is a 54-year-old female presents for chronic pain shoulder and neck and episode of shortness of breath prior to arrival. No anterior chest pain and no anginal or exertional symptoms. Prior negative workup earlier in the year. Has chronic pain issues and history of Ori-Danlos. Given patient has no chest pain during this examination. She repeatedly reviewed unremarkable for any ST elevation Markers and chest x-ray were ordered to evaluate cause of symptoms 11/15/24 18:23 Your workup was unremarkable no acute abnormality and troponin. EKG was obtained 1809 again normal sinus rhythm normal EKG. Repeat troponin was ordered. Patient has normal sats. She has no breathing issues. She has no chest pain or arm pain. She reports only some discomfort she had in her neck that was prior to today's events. The second troponin and if this is negative refer her back to her provider for further outpatient management. Repeat vitals normal blood pressure and heart rate in 90s 11/15/24 18:24 11/15/24 19:01 Has no shortness of breath or chest discomfort on repeat exam. Troponin is negative x 2. Discussed with patient her goals. She states that she would really like to be pain-free. I discussed with her however she has ongoing pain with her neck has outpatient MRIs and injection schedule. She feels better and I see no cardiovascular cause for her symptoms in the thoracic ED right now is help her with some of her pain management from her neck standpoint. I do not see any vascular cause unaware of her connective tissue disorder issues. The symptoms she presents at this time appear to be more longstanding and the only acute symptom was the dyspnea and she has normal sats and workup. Is gone at this time. You are given a brief course of tramadol for pain control she will follow-up with her providers for further management - Departure Departure Disposition: Home Clinical Impression: Acute neck pain, Dyspnea Condition: Good Critical Care Time: No Referrals: ELIE WATSON FNP [Primary Care Provider, UNKNOWN] - Follow up/PCP as directed Instructions: Neck pain, Shortness of breath Additional Instructions: Your test were repeated complaints and workup was unremarkable. You continue to have symptoms and follow-up with primary doctor for further outpatient management. Please keep follow-up with your outpatient workup for your neck. Prescriptions: Tramadol HCl 50 mg [Ultram 50 mg] 50 mg PO TID 4 Days #12 tablet
[2024-11-15 16:39] LABS: BASOPHIL % 0.5 % (0.1-1.2); Basophil (Absolute #) 0.04 x10^3/uL (0.01-0.08); Eosinophil (Absolute #) 0.20 x10^3/uL (0.04-0.36); Hematocrit 37.6 % (34.1-44.9); Hemoglobin 12.7 g/dL (11.2-15.7); IMMATURE GRAN # 0.02 x10^3u/L (0.001-0.031); IMMATURE GRAN % 0.3 % (0.001-0.429); Lymphocyte (Absolute #) 2.68 x10^3/uL (1.18-3.74); Mean Corpuscular Hemoglobin 30.3 pg (25.6-32.2); Mean Corpuscular Hgb Concent. 33.8 g/dL (32.2-35.5); Monocyte (Absolute #) 0.41 x10^3/uL (0.24-0.86); NUCLEATED RBC # 0.00 x10^3u/L (0.00-0.012); NUCLEATED RBC % 0.0 % (0.00-0.2); Platelet Count 330 x10^3/uL (182-369); Red Blood Count 4.19 x10^6/uL (3.93-5.22); White Blood Count 8.0 x10^3/uL (3.98-10.04)
--- NOTE | 2024-11-15 16:46 | XRAY ---
Indication: Arm pain. Dyspnea. Comparison: March 22, 2024 Portable chest again demonstrates normal heart and lungs. Bony thorax intact again with cervical fusion hardware. No new/acute findings.
[2024-11-15 16:53] LABS: Calcium 9.5 mg/dL (8.4-10.2); Carbon Dioxide 22.0 mmol/L (22-30); Creatinine 1 0.77 mg/dL (0.52-1.04); EST GLOMERULAR FILTRATION RATE 90.5 ML/MIN; Glucose 159.0 mg/dL (74-106); Potassium 4.0 mmol/L (3.5-5.1)
[2024-11-15] MEDS ORDERED: TORAdol 30 mg Injection ONE (17:23)
[2024-11-15] MEDS: TORAdol 30 mg Injection IV ONE (17:28)
[2024-11-15 19:06] VITALS: BP 126/96; PULSE 85; RESP 13
[2024-11-15 19:07] VITALS: O2SAT 98
== END 2024-11-15 19:20 | disposition home or self-care (01) ==
LOC: ED 16:13
DX: M54.2 Cervicalgia (principal); R06.00 Dyspnea, unspecified; Z79.891 Long term (current) use of opiate analgesic; Z79.899 Other long term (current) drug therapy